=== PATIENT | male | born 1980 | race Caucasian/White ===

== ENCOUNTER 2021-01-31 18:50 | Emergency (ER) | payer OTHER ==
[~2021-01-31] VITALS: Ht 188 cm; Wt 113.4 kg
[~2021-01-31 18:50] MED LIST: ALVESCO6.1 G1 INH; LORATADINE10 MG PO; NASACORT10.8 ML NAS; PROAIR HFA8.5 GM INH; SUDAFED 12-HOU120 MG PO
[2021-01-31] MEDS ORDERED: CEPHALEXIN500 MG PO (20:45)
[2021-01-31] MEDS ORDERED: HYDROCODON-ACE1 EA10 PO (20:47)
== END 2021-01-31 21:05 | disposition home or self-care (01) ==
LOC: ED 18:50
DX: S91.331A Puncture wound without foreign body, right foot, initial encounter (principal); W22.8XXA Striking against or struck by other objects, initial encounter
CPT/HCPCS: 73630; 99283-25

== ENCOUNTER 2024-08-23 14:01 | Emergency (ER) | payer OTHER ==
[~2024-08-23] VITALS: Ht 188 cm; Wt 121.1 kg
[~2024-08-23 14:01] MED LIST changes: +CEPHALEXIN500 MG PO; +HYDROCODON-ACE1 EA10 PO
[2024-08-23 14:25] LABS: BILIRUBIN, URINE POSITIVE (negative); BLOOD/HGB, URINE NEGATIVE (Negative); KETONE, URINE SMALL (Negative); LEUK ESTERASE, URINE NEGATIVE (negative); NITRITE, URINE POSITIVE (negative)
[2024-08-23 14:29] LABS: EPITHELIAL CELLS, URINE SQUAMOUS 1+ /lpf (0-1+)
[2024-08-23] MEDS ORDERED: KETOROLAC TROMETHAMINE 15 MG/ML VIAL IV ONE (14:30)
[2024-08-23] MEDS ORDERED: ondansetron HCL 4 MG/2 ML VIAL IV PRN (14:30)
[2024-08-23 14:31] LABS: CRYSTALS, URINE AMORPHOUS URATES 2+ (0-1+); RED BLOOD CELLS, URINE 0-1 /hpf (0-5); WHITE BLOOD CELLS, URINE 0-1 /HPF (0-5)
[2024-08-23 14:32] LABS: BACTERIA, URINE RARE /hpf (negative); CASTS, URINE NONE SEEN \\lpf; COLLECTION TYPE, URINE CLEAN CATCH; REFLEX CULTURE, URINE No (No)
[2024-08-23 14:47] LABS: BASOPHILS 0.3 % (0-2); EOSINOPHILS 0.1 % (0-6); HEMATOCRIT 48.3 % (35.0-50.0); HEMOGLOBIN 17.1 g/dL (12.0-18.0); LYMPHOCYTES 8.8 % (24-44); MCH 30.9 (27-36); MCHC 35.5 g/dl (30-36); MCV 87.1 fl (81-99); MONOCYTES 3.9 % (0-12); NEUTROPHILS 86.9 % (39-80); PLATELET COUNT 153 K/uL (140-440); RBC 5.55 M/ul (4.3-5.7); RDW 13.5 (10.5-15.0)
[2024-08-23] MEDS ORDERED: KETOROLAC TROMETHAMINE 30 MG/ML VIAL IV ONE (15:00)
[2024-08-23] MEDS ORDERED: SODIUM CHLORIDE 0.9% 1,000 ML IV ONE ×2 (15:00→17:15)
[2024-08-23 15:01] LABS: ALBUMIN 3.9 g/dL (3.4-5.0); ALBUMIN/GLOBULIN RATIO 0.91 (1.1-2.4); ANION GAP 16.7 (7-21); BILIRUBIN, TOTAL 0.9 ng/dL (0.2-1.0); BUN/CREATININE RATIO 9.37 (6.0-28.6); CALCIUM 9.7 mg/dL (8.5-10.1); CREATININE, SERUM 1.28 mg/dL (0.70-1.30); POTASSIUM 3.7 mmol/L (3.5-5.1); PROTEIN, TOTAL 8.2 g/dL (6.4-8.2)
[2024-08-23] MEDS ORDERED: HYDROmorphone HCL 1 MG/ML SYR IV PRN (15:15)
[2024-08-23] MEDS ORDERED: ONDANSETRON ODT8 MG PO (17:15)
[2024-08-23] MEDS ORDERED: ondansetron HCL 4 MG/2 ML VIAL IV ONE (17:15)
[2024-08-23 18:42] VITALS: BP 114/76
[2024-08-23] MEDS ORDERED: ONDANSETRON 4 MG HOME.PACK SL ONE (18:45)
== END 2024-08-23 18:42 | disposition home or self-care (01) ==
LOC: ED 14:01
PROVIDERS: Emergency Medicine
DX: K52.9 Noninfective gastroenteritis and colitis, unspecified (principal); J45.909 Unspecified asthma, uncomplicated; Z90.49 Acquired absence of other specified parts of digestive tract; Z79.899 Other long term (current) drug therapy
CPT/HCPCS: 36415; 76705; 80053; 81001; 83690; 85025; 96361; 96374; 96375; 96376; 99284-25; A9270; J1171; J1885; J2405; J7030

== ENCOUNTER 2024-08-25 17:40 | Inpatient (IN) | payer OTHER ==
[~2024-08-25] VITALS: Ht 188 cm; Wt 119.7 kg
[~2024-08-25 17:40] MED LIST changes: +ONDANSETRON ODT8 MG PO
--- OUTSIDE RECORDS SUMMARY | 2024-08-25 17:47 | XMS ---
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 EElizabeth VISIT COUNT (12 MO.) 2 [facility] TOTAL 2 NOTE: Visits indicate total known visits. ED/UCC VISIT TRACKING (12 MO.) 08/25/2024 17:41 [facility] [place] TYPE: Emergency COMPLAINT: - VOMITING/CONSTIPATION 08/23/2024 14:01 [facility] [place] TYPE: Emergency COMPLAINT: - ABDOMINAL PAIN INPATIENT VISIT TRACKING (12 MO.) No inpatient visits to display in this time frame [id number]
[2024-08-25] MEDS ORDERED: ALLOPURINOL100 MG PO (17:56)
[2024-08-25] MEDS ORDERED: DULERA 100 MCG/13 GM INH (17:56)
[2024-08-25] MEDS ORDERED: ondansetron HCL 4 MG/2 ML VIAL IV ONE (18:15)
[2024-08-25] MEDS ORDERED: SODIUM CHLORIDE 0.9% 1,000 ML IV PRN (18:15)
[2024-08-25 18:33] LABS: BASOPHILS 0.3 % (0-2); EOSINOPHILS 0.1 % (0-6); HEMATOCRIT 50.8 % (35.0-50.0); HEMOGLOBIN 17.3 g/dL (12.0-18.0); LYMPHOCYTES 7.9 % (24-44); MCH 30.2 (27-36); MCHC 34.1 g/dl (30-36); MCV 88.7 fl (81-99); MONOCYTES 7.8 % (0-12); NEUTROPHILS 83.9 % (39-80); PLATELET COUNT 179 K/uL (140-440); RBC 5.73 M/ul (4.3-5.7); RDW 13.7 (10.5-15.0)
[2024-08-25 18:42] LABS: ALBUMIN 3.4 g/dL (3.4-5.0); ALBUMIN/GLOBULIN RATIO 0.77 (1.1-2.4); ANION GAP 13.5 (7-21); BILIRUBIN, TOTAL 1.3 ng/dL (0.2-1.0); BUN/CREATININE RATIO 13.15 (6.0-28.6); CALCIUM 9.7 mg/dL (8.5-10.1); CREATININE, SERUM 1.52 mg/dL (0.70-1.30); POTASSIUM 3.5 mmol/L (3.5-5.1); PROTEIN, TOTAL 7.8 g/dL (6.4-8.2)
[2024-08-25 18:45] LABS: BILIRUBIN, URINE POSITIVE (negative); BLOOD/HGB, URINE SMALL (Negative); KETONE, URINE SMALL (Negative); LEUK ESTERASE, URINE NEGATIVE (negative); NITRITE, URINE NEGATIVE (negative); PH, URINE 5.5 (5-7)
[2024-08-25 18:55] LABS: BACTERIA, URINE NONE SEEN /hpf (negative); CASTS, URINE NONE SEEN \\lpf; COLLECTION TYPE, URINE CLEAN CATCH; CRYSTALS, URINE AMORPHOUS URATES 1+ (0-1+); EPITHELIAL CELLS, URINE NONE SEEN /lpf (0-1+); RED BLOOD CELLS, URINE 0-1 /hpf (0-5); REFLEX CULTURE, URINE No (No); WHITE BLOOD CELLS, URINE 0-1 /HPF (0-5)
[2024-08-25] MEDS ORDERED: droPERidol 5 MG/2 ML VIAL IV ONE (19:15)
[2024-08-25] MEDS ORDERED: LACTATED RINGER'S 1,000 ML IV ONE (19:15)
[2024-08-25] MEDS ORDERED: HYDROmorphone HCL 1 MG/ML SYR IV PRN ×3 (19:15→22:15)
[2024-08-25] MEDS ORDERED: FAMOTIDINE 20 MG/ 2 ML VIAL IV ONE (19:30)
[2024-08-25 20:44] LABS: INR 1.04 (0.80-1.30); PROTIME 13.5 Sec (11.2-14.2)
[2024-08-25] MEDS ORDERED: ondansetron HCL 4 MG/2 ML VIAL IV PRN (20:45)
[2024-08-25] MEDS ORDERED: ENOXAPARIN SODIUM 40 MG/0.4 ML SYR SUB-Q ONE (20:45)
[2024-08-25] MEDS ORDERED: LACTATED RINGER'S 1,000 ML IV SCH (20:45)
[2024-08-25 20:46] LABS: PARTIAL THROMBOPLASTIN TIME 28.6 Sec (22.9-41.3)
[2024-08-25] MEDS ORDERED: FAMOTIDINE 20 MG/ 2 ML VIAL IV SCH (21:00)
[2024-08-25 21:48] VITALS: BP 147/87
[2024-08-25] MEDS ORDERED: PROCHLORPERAZINE EDISYLATE 10 MG/2 ML VIAL IV PRN (22:15)
--- NOTE | 2024-08-25 22:28 | NUR ---
PT TO FLOOR VIA STRETCHER WITH ED RN. ALERT AND ORIENTED. PT ABLE TO TRANSFER SELF TO BED. REPORT RECEIVED. VS AND WEIGHT OBTAINED. NGT TO LIWS. IVF INFUSING PER ORDER. PT REPORTS ABD PAIN 10/06. PRN FOR PAIN ADMIN PER EMAR. PT GAGGING ON NGT AND REQUESTING ICE CHIPS. CALLED. NEW TELEPHONE ORDERS RECEIVED VERIFIED WITH READBACK METHOD. PT DENIES NAUSEA AT THIS TIME. BOWEL TONES RARE. ABD SOFT. PT DENIES FLATUS, LAST BM SUNDAY. PT ORIENTED TO ROOM AND NURSE CALL LIGHT. PT DENIES QUESTIONS OR CONCERNS. CALL LIGHT IN REACH.
[2024-08-25] MEDS ORDERED: phenoL 177 ML SPRAY MT PRN (22:30)
[2024-08-26] VITALS (10 sets, daily range): BP systolic 132–145; BP diastolic 79–81
--- NOTE | 2024-08-26 00:33 | NUR ---
ROUNDING ON PT. PT AWAKE IN BED. REPORTS ABD PAIN 11/06. PRN FOR PAIN ADMIN PER EMAR. URINAL EMPTIED OF 400 ML CONCENTRATED URINE. NGT TO LIWS WITH SMALL AMOUNT CLEAR DRAINAGE. HOB 30 DEGREES. ICE CHIPS AT BEDSIDE. PT DENIES NAUSEA. NO FURTHER NEEDS.
--- NOTE | 2024-08-26 02:14 | NUR ---
PT RESTING WITH EYES CLOSED. AWAKENS EASILY. VS AND I&O OBTAINED. PT REMAINS NPO. ICE CHIPS AT BEDSIDE. NGT TO LIWS WITH SMALL AMOUNT CLEAR DRAINAGE. PT REPORTS ABD/BACK PAIN 11/06. PRN FOR PAIN ADMIN PER EMAR. NO C/O NAUSEA AT THIS TIME. IN ROOM TO STAY THE NIGHT, LINENS PROVIDED. NO FURTHER NEEDS. CALL LIGHT IN REACH.
--- NOTE | 2024-08-26 04:08 | NUR ---
PT UTILIZES CALL LIGHT, REQUESTS PRN PAIN MEDICATION. PT RATES PAIN 5/10 TO ABD AND BACK. PRN ADMINISTERED. SEE EMAR. ICE CHIPS PROVIDED PER REQUEST. PT'S PRESENT AT BEDSIDE. PT DENIES FURTHER NEEDS. CALL LIGHT IN REACH.
[2024-08-26 05:41] LABS: BASOPHILS 0.2 % (0-2); HEMATOCRIT 44.9 % (35.0-50.0); HEMOGLOBIN 15.4 g/dL (12.0-18.0); LYMPHOCYTES 9.5 % (24-44); MCH 30.5 (27-36); MCHC 34.4 g/dl (30-36); MCV 88.6 fl (81-99); MONOCYTES 11.7 % (0-12); NEUTROPHILS 78.6 % (39-80); PLATELET COUNT 151 K/uL (140-440); RBC 5.07 M/ul (4.3-5.7); RDW 13.6 (10.5-15.0)
[2024-08-26 05:59] LABS: ALBUMIN 2.9 g/dL (3.4-5.0); ALBUMIN/GLOBULIN RATIO 0.78 (1.1-2.4); ANION GAP 10.8 (7-21); BILIRUBIN, TOTAL 1.1 ng/dL (0.2-1.0); BUN/CREATININE RATIO 16.66 (6.0-28.6); CALCIUM 8.7 mg/dL (8.5-10.1); CREATININE, SERUM 1.08 mg/dL (0.70-1.30); POTASSIUM 3.8 mmol/L (3.5-5.1); PROTEIN, TOTAL 6.6 g/dL (6.4-8.2)
[2024-08-26] MEDS ORDERED: ACETAMINOPHEN 325 MG TAB PO PRN (06:30)
[2024-08-26] MEDS ORDERED: ACETAMINOPHEN 650 MG SUPP PR PRN (06:30)
[2024-08-26] MEDS ORDERED: DEXTROSE 5% - LACTATED RINGERS 1,000 ML IV SCH (06:30)
--- NOTE | 2024-08-26 06:32 | NUR ---
VS AND I&O OBTAINED. PT REPORTS ABD PAIN 11/06. PRN FOR PAIN ADMIN PER EMAR. SpO2 LOW 90'S ON RA WHILE AWAKE. CPOX PLACED. SpO2 DOWN TO 88%. 1L/NC PLACED. HOB ELEVATED >30 DEGREES. NO FURTHER NEEDS AT THIS TIME. CALL LIGHT IN REACH.
[2024-08-26] MEDS ORDERED: HEParin SOD (PORCINE) 5,000 UNIT/ML SYR IV ONE (06:45)
[2024-08-26] MEDS ORDERED: HEParin SOD (PORCINE) 5,000 UNIT/ML SYR IV PRN ×3 (06:45)
[2024-08-26] MEDS ORDERED: HEPARIN SOD,PORK IN 0.45% NACL 500 ML IV SCH (06:45)
[2024-08-26 07:01] LABS: INR 1.1 (0.80-1.30); PROTIME 14.1 Sec (11.2-14.2)
[2024-08-26 07:03] LABS: PARTIAL THROMBOPLASTIN TIME 30.9 Sec (22.9-41.3)
[2024-08-26] MEDS ORDERED: COLCRYS0.6 MG PO (07:41)
[2024-08-26] MEDS ORDERED: VENTOLIN HFA18 GM INH (07:42)
[2024-08-26] MEDS ORDERED: PRILOSEC OTC20 MG PO (07:58)
--- NOTE | 2024-08-26 07:59 | NUR ---
MED REC COMPLETE
--- NOTE | 2024-08-26 08:05 | CONS ---
[facility] [address], [place] [address] Signed DATE OF CONSULTATION: 08/26/2024 CHIEF COMPLAINT: Right lower quadrant abdominal pain. HISTORY OF PRESENT ILLNESS: Farhad is a 43-year-old gentleman, who underwent an open appendectomy for ruptured appendicitis when he was 4 years old. He said he was almost . They left a drain in him for two weeks. He also had surgery for nasal fracture. 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 He otherwise is quite healthy other than a little asthma and back pain. He came to our emergency room five days ago with various abdominal complaints of what he thought was constipation and some vomiting. His ultrasound of the right upper quadrant was unrevealing. He felt better after some IV fluids and some Zofran. He came back with ongoing vomiting and dehydration. Again, he felt better with some IV fluids and antiemetics. White count was a little up at 12.1, but so was his hemoglobin at 17, so was the BUN and creatinine and his urine specific gravity. CT scan of the abdomen and pelvis shows that he has a small bowel obstruction in the right lower quadrant associated with his previous open appendectomy. 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 He was given some Lovenox last night and admitted to my service as a local general surgeon. He has done very well overnight. PAST MEDICAL HISTORY: Asthma and back pain. PAST SURGICAL HISTORY: He has an open appendectomy at age 4 requiring a drain for two weeks, also nasal fracture repair. SOCIAL HISTORY: He does not smoke. He does use marijuana. He is to his , Rosio at [phone]. They have two children. He works as a wheat rancher. Dr. Dagoberto Rivero is his primary care provider. He prefers the [facility] pharmacy. FAMILY HISTORY: He tells me there are no major medical issues in the family. REVIEW OF SYSTEMS: He had 10 systems reviewed. He is mainly talking about his open appendectomy. ALLERGIES: None. Electronically Signed By: JAN CARDOZO MD 08/26/24 0805 PATIENT NAME: FARHAD KWONG CONSULTATION DATE OF : 76 REPORT #: [id number] PHYSICIAN: JAN CARDOZO MD PCP: NOEMI RIVERO MD REPORT IS CONFIDENTIAL AND NOT TO BE RELEASED WITHOUT AUTHORIZATION [facility] [address] [place] [id number] Signed MEDICATIONS: 1. Zofran. 2. Albuterol. 3. Dulera. 4. Allopurinol. PHYSICAL EXAMINATION: VITAL SIGNS: His blood pressure is 145/81, his heart rate is 90, respiratory rate 18, temperature is 98.2. He is 94% to 97%. He is 6 feet 2 inches tall, 119 kg with a body mass index of 34. GENERAL: Farhad is a 43-year-old gentleman, lying supine in his hospital bed. His is in the room. He is in no acute distress. He has no increased work of breathing or shortness of breath. LUNGS: Generally clear to auscultation bilaterally. HEART: Regular rate and rhythm without murmurs. ABDOMEN: Obese, soft, flat, but he does have some minimal tenderness in the right lower quadrant. LABORATORY DATA: His white blood cell count was 12.1, it is down to 9. His hemoglobin was 17, it is down to 15. His neutrophils are 78. His platelets are 151. BUN 20, creatinine 1.5. Urine specific gravity was greater than 1.030. INR is 1. Total bilirubin was 1.3, AST 20, ALT 22, alkaline phosphatase 82, albumin 3.4, lipase 24. RADIOGRAPHIC STUDIES: Ultrasound from five days ago was unremarkable. Chest x-ray shows his NG tube in the stomach, but the lungs are unremarkable. CT scan of the abdomen and pelvis shows the small bowel obstruction in the right lower quadrant, some thrombus in the superior mesenteric vein near the splenic vein. ASSESSMENT AND PLAN: Farhad is a 43-year-old gentleman, who presents with his small bowel obstruction associated with his appendectomy when he was 4 years old along with dehydration and some thrombus in the superior mesenteric vein. He has been admitted, hydrated, and NG tube placed. Overall, he feels better. He did receive some Lovenox last night. I have contacted my hospitalist service and we discussed this in detail and he really needs to be on a heparin drip. If his small bowel resolve with conservative measures, we can turn off the heparin drip to do his surgery and turn the drip back on. Otherwise, he would be on Eliquis. I have reviewed this with Frahad and his . They have expressed understanding and agreed with the above plan. Electronically Signed By: JAN CARDOZO MD 08/26/24 0805 PATIENT NAME: FARHAD KWONG CONSULTATION DATE OF : 76 REPORT #: [id number] PHYSICIAN: JAN CARDOZO MD PCP: NOEMI RIVERO MD REPORT IS CONFIDENTIAL AND NOT TO BE RELEASED WITHOUT AUTHORIZATION [facility] [address] [address] Signed Jan Cardozo MD ALB/MODL /[id number] cc: MD Jan Carter MD Copies: NOEMI RIVERO MD, ANDREW L MD ~ Electronically Signed By: JAN CARDOZO MD 08/26/24 0805 PATIENT NAME: FARHAD KWONG CONSULTATION DATE OF : 76 REPORT #: [id number] PHYSICIAN: JAN CARDOZO MD PCP: NOEMI RIVERO MD REPORT IS CONFIDENTIAL AND NOT TO BE RELEASED WITHOUT AUTHORIZATION
--- NOTE | 2024-08-26 08:45 | NUR ---
AM ASSESSMENT COMPLETE - NGT DRAINING CLEAR TO GREEN BILE, PT USING ICE CHIPS MORE LIBERALLY THAN INTENDED FOR COMFORT, EDUCATION PROVIDED. BT ABSENT IN LOWER QUADRANTS, NOT PASSING GAS. HEPARIN GTT AND BOLUS STARTED, EDUCATION PROVIDED TO FAMILY REGARDING THIS - SEE FLOWSHEET FOR DETAILS. PT DENIES SOB OR PAIN WITH INSPIRATION, LUNGS CLEAR. CPOX IN PLACE.
[2024-08-26] MEDS ORDERED: PANTOPRAZOLE SODIUM 40 MG/10 ML VIAL IV SCH (09:00)
--- NOTE | 2024-08-26 10:16 | NUR ---
NGT CLAMPED FOR PT TO AMBULATE IN HALLWAY. FATHER IN ROOM TO ASSIST IN MOVING IV POLE. STATES PAIN IS WELL CONTROLLED AT THIS TIME.
--- NOTE | 2024-08-26 10:31 | NUR ---
PT NOT AVAILABLE FOR VISIT. PROVIDED PRAYER.
--- NOTE | 2024-08-26 11:42 | NUR ---
RN IN ROOM ROUNDING ON PT - RESTING IN BED WITH NGT CONNECTED TO LIS, CONTINUES TO DRAIN GREEN THIN BILE. PT DENIES NEED FOR PAIN MEDICATION AT THIS TIME. CPOX AT BEDSIDE, 92% ON ROOM AIR. PT DENIES SOB WITH REST OR AMBULATION. URINE NOTED TO BE CONCENTRATED/ORANGE IN COLOR. FATHER AT BEDSIDE.
--- NOTE | 2024-08-26 12:11 | NUR ---
PT SALINE LOCKED AND NGT CLAMPED TO GO TO CT.
[2024-08-26] MEDS ORDERED: MENTHOL/CETYLPYRD CL 1 LOZ LOZENGE PO PRN (12:15)
--- NOTE | 2024-08-26 12:30 | NUR ---
PT BACK FROM CT - PT REQUESTS PAIN MEDICATION AND LOZENGE. PT EDUCATED ON USE OF ICE CHIPS HE HAS BEEN REFILLING HIS CUP WITHOUT STAFF PERMISSION FROM ICE MACHINE. FAMILY ARE ASSISTING IN THIS. PT ASKED NOT TO CONTINUE AND EDUCATED ON PURPOSE OF GUT REST AND NGT. CPOX IN PLACE, IVF AND HEPARIN GTT INFUSING.
--- NOTE | 2024-08-26 13:23 | NUR ---
UR CLINICAL REVIEW: [facility] IN[facility] CRITERIA FOR [facility] INPT 08/26/24 @ 0625 ORDER MATCHES REG CLINICALS FAXED TO [facility] FOR AUTH REVIEW DISCHARGE TO HOME WHEN STABLE 08/29/24
--- NOTE | 2024-08-26 14:04 | NUR ---
PATIENT IN BED AT THIS TIME. INVENTORY CONTROL SUPERVISOR CHARTED VITALS AND I&O'S. CALL LIGHT WITHIN REACH, NO FURTHER NEEDS AT THIS TIME.
--- NOTE | 2024-08-26 14:20 | NUR ---
In and spoke with Farhad and his dad, Jayme. Pt resting in bed with NG in place. Pt states he lives in a house with his and kids. He plans on returning home when he is medically cleared. or dad will stay with him if needed when he is discharged. Pt does not use and DME. He works and drives. He denies financial issues. Home when cleared.
--- NOTE | 2024-08-26 15:42 | NUR ---
RN IN ROOM TO PAUSE HEPARIN GTT PER PROTOCOL. LOZENGE PROVIDED PER REQUEST. AT BEDSIDE AND PT RESTING IN BED COMFORTABLY. CPOX IN PLACE. PT REQUESTS OXYGEN "TO HELP MY HEADACHE".
--- NOTE | 2024-08-26 16:44 | NUR ---
PT AMBULATING IN HALLWAY WITH FAMILY.
--- NOTE | 2024-08-26 17:50 | NUR ---
PATIENT IN BED AT THIS TIME. CAMERA SUPERVISOR CHARTED VITALS AND I&O'S. CALL LIGHT WITHIN REACH, NO FURTHER NEEDS AT THIS TIME.
--- NOTE | 2024-08-26 19:38 | NUR ---
REPORT RECEIVED FROM DAY SHIFT RN. PT LYING IN BED ALERT AND ORIENTED. DENIES NEEDS. WHITE BOARD UPDATED. CALL LIGHT IN REACH.
[2024-08-26] MEDS ORDERED: IBLOOD GLUCOSE TEST STRIP 1 EA TEST VI SCH (20:00)
--- NOTE | 2024-08-26 20:42 | NUR ---
EVENING ASSESSMENT COMPLET. PT REPORTS CHRONIC BACK PAIN 11/06. PRN FOR PAIN ADMIN PER EMAR. NGT TO LIWS WITH SMALL AMOUNT CLEAR DRAINAGE. BOWEL TONES RARE/ABSENT. ABD SOFT. PT DENIES FLATUS. HEPARIN DRIP INFUSING PER ORDER. AT BEDSIDE. PT DENIES QUESTIONS OR CONCERNS. CALL LIGHT IN REACH.
[2024-08-26] MEDS ORDERED: PATIENT'S OWN MEDICATION(S) ORDER MISC ONE (21:45)
--- NOTE | 2024-08-26 21:47 | NUR ---
PATIENT REQUESTING TO USE OWN INHALER, PHONE CALL TO MD, TELEPHONE ORDER FOR HOME INHALER BID, ORDER REPEATED BACK TO VERIFY.
[2024-08-26] MEDS ORDERED: [UNRECOGNIZED DRUG - OTHER] MISC SCH (22:00)
[2024-08-26] MEDS ORDERED: FORMOTEROL FUMARATE MISC SCH (22:00)
[2024-08-26] MEDS ORDERED: MOMETASONE MISC SCH (22:00)
--- NOTE | 2024-08-26 22:53 | NUR ---
LAB IN FOR PTT DRAW. PT HOME INHALER ADMIN. NO FURTHER NEEDS AT THIS TIME. CALL LIGHT IN REACH.
[2024-08-27] VITALS (11 sets, daily range): BP systolic 131–141; BP diastolic 81–93
--- NOTE | 2024-08-27 00:11 | NUR ---
PTT RESULTS RECEIVED AT 2317. HEPARIN DRIP PAUSED FOR THIRTY MINUTES. PT UP TO SHOWER INDEPENDENTLY. LINENS CHANGED. BACK TO BED, LOLIS WELL. PRN FOR N/V AND PAIN ADMIN PER EMAR. NGT TO LIWS. HOB ELEVATED. 2L/NC AND CPOX PLACED. HEPARIN DRIP TITRATED TO 13 UNITS/KG/HR AND STARTED AT 2348. RATE VERIFIED WITH CLAIM CLINICIAN. PT DENIES FURTHER NEEDS. CALL LIGHT IN REACH.
--- NOTE | 2024-08-27 02:39 | NUR ---
PHONE CALL TO ERNESTO FROM TELEPHARMACY. DISCUSSED HEPARIN GTT STARTED WITH ACTUAL WEIGHT VS DOSING WEIGHT. PHARMACIST RECOMMENDS CONTINUING WITH RATE BASED ON ACTUAL WEIGHT AT THIS TIME.
--- NOTE | 2024-08-27 02:45 | NUR ---
CALL LIGHT ANSWERED. PT REPORTS INTERMITTENT SHARP ABD PAIN 01/06. PRN FOR PAIN ADMIN PER EMAR. ABD ASSESSMENT COMPLETE. BOWEL TONES HYPOACTIVE. ABD SOFT. NGT TO LIWS WITH CLEAR DRAINAGE. FEW ICE CHIPS PROVIDED PER REQUEST FOR THROAT DISCOMFORT. NO FURTHER NEEDS. CALL LIGHT IN REACH.
--- NOTE | 2024-08-27 04:14 | NUR ---
CALL LIGHT ANSWERED. PT REPORTS DULL ABD PAIN 5/10. PRN FOR PAIN ADMIN PER EMAR.
--- NOTE | 2024-08-27 05:32 | NUR ---
CALL LIGHT ANSWERED. PT REPORTS BACK PAIN 11/06. PRN FOR PAIN ADMIN PER EMAR. NO FURTHER NEEDS.
[2024-08-27 05:57] LABS: BASOPHILS 0.2 % (0-2); EOSINOPHILS 0.3 % (0-6); HEMOGLOBIN 13.8 g/dL (12.0-18.0); LYMPHOCYTES 13.6 % (24-44); MCH 30.1 (27-36); MCHC 33.8 g/dl (30-36); MCV 89.2 fl (81-99); MONOCYTES 10.8 % (0-12); NEUTROPHILS 75.1 % (39-80); PLATELET COUNT 138 K/uL (140-440); RDW 13.6 (10.5-15.0)
[2024-08-27 06:14] LABS: ANION GAP 9.5 (7-21); BUN/CREATININE RATIO 13.4 (6.0-28.6); CALCIUM 8.6 mg/dL (8.5-10.1); CREATININE, SERUM 0.97 mg/dL (0.70-1.30); MAGNESIUM 1.9 mg/dL (1.8-2.4); PHOSPHORUS, INORGANIC 2.6 mg/dL (2.5-4.9); POTASSIUM 3.5 mmol/L (3.5-5.1)
[2024-08-27] MEDS ORDERED: SODIUM PHOSPHATE 20 MMOL in DEXTROSE 5% 250 ML IV ONE (07:00)
--- NOTE | 2024-08-27 07:02 | NUR ---
REPORT RECEIVED FROM APPLICATION SOFTWARE ENGINEER RN KVNG. PATIENT IS LYING IN BED WITH NG TUBE AND NC IN PLACE. PATIENT IS REQUESTING PAIN MEDICATION. PATIENT EDUCATED ON RN RECEIVING REPORT BY KVNG. PATIENT EXPRESSED UNDERSTANDING. PATIENT STATED NO FURTHER NEEDS AT THIS TIME. CALL LIGHT AND PERSONAL BELONGINGS ARE WITHIN REACH.
--- NOTE | 2024-08-27 07:50 | NUR ---
0800 AND 0900 MEDICATIONS ADMINISTERED PER THE EMAR. FULL ASSESSMENT COMPLETE AND DOCUMENTED IN THE CHART. PATIENT IS ALERT AND ORIENTED TIMES FOUR. FLAT AFFECT NOTED. CARDIAC WITH NORMAL S1 AND S2 ON AUSCULTATION. RADIAL AND PEDAL PULSES ARE STRONG BILATERALLY. CAPILLARY REFILL IN THE UPPER AND LOWER EXTREMITIES IS LESS THAN 3 SECONDS BILATERALLY. SENSATION INTACT WITH NO COMPLAINTS OF NUMBNESS OR TINGLING. PATIENT IS ON 2 L NC WITH THE CPOX AT BEDSIDE. LUNG SOUNDS ARE CLEAR IN ALL LUNG CHIU BILATERALLY. PATIENT IS NPO WITH THE NG TUBE IN PLACE. BOWEL TONES ARE ACTIVE IN ALL FOUR QUADRANTS. NG TUBE WITH ALBA DRAINAGE THAT IS WATERED DOWN. ICE CHIPS AT BEDSIDE FOR COMFORT. IV SITE FLUSHED WITH 10 ML NORMAL SALINE. IV DRESSING IS CLEAN, DRY, AND INTACT. IV HEPARIN INFUSION AND D5LR IS INFUSING AT 90 ML/HR DUE TO NURSE NOTIFY TO MAINTAIN TOTAL IV FLUID INTAKE TO 125 ML/HR AND UNDER. PATIENT RATED PAIN A 4/10 IN THE LOW BACK AND ABDOMEN. PRN DILAUDID ADMINISTERED PER THE EMAR. URINAL AT THE BEDSIDE. PATIENT STATED NO FURTHER NEEDS AT THIS TIME. CALL LIGHT AND PERSONAL BELONGINGS ARE WITHIN REACH.
--- NOTE | 2024-08-27 08:07 | NUR ---
Q6 blood sugar checked. RETA Sands already in room.
--- NOTE | 2024-08-27 08:45 | NUR ---
NEW OF FLUID STARTED AT THIS TIME. PATIENT STATES PAIN IS A 3/10 IN THE ABDOMEN AND LOW BACK AFTER RECEIVING PAIN MEDICATION THIS MORNING. PATIENT WITH VISITOR AT BEDSIDE AND TALKING WITH THE PATIENT. PATIENT STATED NO FURTHER NEEDS AT THIS TIME. CALL LIGHT AND PERSONAL BELONGINGS ARE WITHIN REACH.
--- NOTE | 2024-08-27 09:34 | NUR ---
Urinal emptied. Visitor in room.
--- NOTE | 2024-08-27 09:43 | NUR ---
PATIENT IS LYING IN BED WITH EYES OPEN AND RESPIRATIONS ARE EVEN AND UNLABORED. NEW IV STARTED IN THE RIGHT HAND, 20 GAUGE. SODIUM PHOSPHATE IS INFUSING IN THE IV SITE AT THIS TIME. PATIENT STATED NO FURTHER NEEDS AT THIS TIME. CALL LIGHT AND PERSONAL BELONGINGS ARE WITHIN REACH.
--- NOTE | 2024-08-27 10:27 | NUR ---
PATIENT IS LYING IN BED WITH EYES CLOSED AND RESPIRATIONS ARE EVEN AND UNLABORED. CPOX AT THE BEDSIDE. CALL LIGHT AND PERSONAL BELONGINGS ARE WITHIN REACH.
--- NOTE | 2024-08-27 11:07 | NUR ---
PATIENT IS LYING IN BED AND OPEN EYES UPON RN OPENING THE DOOR. PATIENT STATED NO FURTHER NEEDS AT THIS TIME. CALL LIGHT AND PERSONAL BELONGINGS ARE WITHIN REACH. NG TUB IN PLACE.
--- NOTE | 2024-08-27 12:11 | NUR ---
PT RESTING IN BED, NG IN PLACE TO LIS. IV FLUIDS INFUSING, PAUSED IV SO LAB COULD COMPLETE LAB DRAW. PRESENT IN THE COUCH AT THIS TIME. URINAL EMPTIED WITH 225ML YELLOW URINE, APPEARS TO HAVE A TINGE OF ORANGE/RED, PRIMARY RN NOTIFIED. PT DENIES ANY FURTHER NEEDS AT THIS TIME. CALL LIGHT WITHIN REACH.
--- NOTE | 2024-08-27 12:22 | NUR ---
PATIENT IS LYING IN BED WITH HOB ELEVATED. PATIENT WITH EYES OPEN AND RESPIRATIONS ARE EVEN AND UNLABORED. PATIENT WITH A VISITOR LYING ON THE COUCH. PATIENT STATED NO NEEDS AT THIS TIME. CALL LIGHT AND PERSONAL BELONGINGS ARE WITHIN REACH.
--- NOTE | 2024-08-27 13:43 | NUR ---
PATIENT IS LYING IN BED WITH HOB ELEVATED. PATIENT IS LYING ON THE COUCH AND ASKING QUESTIONS. QUESTIONS ANDSWERE BY THIS RN. PATIENT RATED PAIN 1/10 IN THE ABDOMEN AND IS NOT REQUESTING ANYTHING FOR PAIN AT THIS TIME. IV SITES BOTH FLUSHED WITH 10 ML NORMAL SALINE. IV DRESSINGS ARE CLEAN, DRY, AND INTACT. NG TUBE IN PLACE AND DRAINING DARK GREEN CONTENTS THAT ARE IN THE SUCTION CANISTER. PATIENT REMAINS NPO AND BOWEL TONES ARE ACTIVE IN ALL FOUR QUADRANTS. PATIENT STATED NO FURTHER NEEDS AT THIS TIME. CAROL LAWTON ARRIVED IN THE ROOM AT THIS TIME. CALL LIGHT AND PERSONAL BELONGINGS ARE WITHIN REACH.
--- NOTE | 2024-08-27 14:50 | NUR ---
PATIENT IS LYING IN BED WITH HOB ELEVATED. PATIENT RATED PAIN 4/10 AND A "TIGHT" FEELING. PATIENT IS NOT REQUESTING ANYTHING FOR PAIN AT THIS TIME. SEVERAL VISITORS ARE SITTING ON THE COUCH AT THIS TIME. CALL LIGHT AND PERSONAL BELONGINGS ARE WITHIN REACH.
--- NOTE | 2024-08-27 15:20 | NUR ---
Pt resting in bed with multiple family members in room. He denies needs.
--- NOTE | 2024-08-27 16:27 | NUR ---
PATIENT IS WALKING INDEPENDENTLY IN THE HALLWAY. PATIENT IS TOLERATING WELL.
--- NOTE | 2024-08-27 18:05 | NUR ---
PRN ZOFRAN AND DILAUDID ADMINISTERED PER THE EMAR. PAIN RATED 7/10 IN THE ABDOMEN PER THE PATIENT. PAIENT EDUCATED ON HOW NARCOTICS CAN MAKE YOU MORE NAUSEOUS. PATIENT STATED "LET'S GIVE IT A TRY AND SEE WHAT HAPPENS". IV SITE FLUSHED WITH 10 ML NORMAL SALINE AND IS SALINE LOCKED AFTER MEDICATION HAS BEEN ADMINISTERED. PATIENT IS SITTING IN THE CHAIR AT BEDSIDE. CPOX AT BEDSIDE. PATIENT CURTAIN DRAWN PER REQUEST. PATIENT STATED NO FURTHER NEEDS AT THIS TIME. CALL LIGHT AND PERSONAL BELONGINGS ARE WITHIN REACH.
--- NOTE | 2024-08-27 19:30 | NUR ---
REPORT RECIEVED FROM DAY SHIFT RN. PATIENT RESTING IN BED. HEPARIN DRIP DOUBLE VERIFIED AT 13 UNITS/KG/HR. NO FURTHER NEEDS. IN ROOM. CALL LIGHT IN REACH.
[2024-08-27] MEDS ORDERED: BUDESONIDE 0.5 MG/2 ML VIAL INH SCH (20:17)
[2024-08-27] MEDS ORDERED: ALBUTEROL SULFATE 0.083% 3 ML VIAL INH PRN (20:30)
--- NOTE | 2024-08-27 20:50 | NUR ---
PATIENT RESTING IN BED. NEW BACK IV FLUID INFUSING PER ORDER. SCHEDULED BS OBTAINED AND RECORDED. VS AND I&Os OBTAINED AND RECORDED. PATIENT AGREEABLE TO WALK SHEEHAN. PATIENT WALKED 2 LAPS AROUND [place] INDEPENDENTLY. PATIENT BACK TO BED. BOWEL TONES HYPOACTIVE. NG TUBE SET TO LIWS. PATIENT REPORTS 5/10 ABD PAIN. PRN PAIN MEDICATION ADMINISTERED. NO FURTHER NEEDS. CALL LIGHT IN REACH.
--- NOTE | 2024-08-27 23:33 | NUR ---
CALL LIGHT ANSWERED. PT WANTED TO SHOWER. RECREATIONAL THERAPY AIDE AND RN PREPPED PT FOR SHOWER. PT ABLE TO SHOWER INDEPENDENTLY. RECREATIONAL THERAPY AIDE AND RN CHANGED PT BED LINENS. PT INSTRUCTED TO CALL WHEN DONE WITH SHOWER. CALL LIGHT ANSWERED. PT BACK IN BED. NG TUBE RECONNECTED TO INTERMEDIATE SUCTION. CPOX RECONNECTED AND RN NOTFIED TO RECONNECT IV. PT STATES NO FURTHER NEEDS AT THIS TIME. CALL LIGHT WITHIN REACH.
[2024-08-28] VITALS (9 sets, daily range): BP systolic 133–137; BP diastolic 77–81
--- NOTE | 2024-08-28 01:37 | NUR ---
PATIENT RESTING IN BED ON BACK WITH EYES CLOSED. RESPIRATIONS EVEN AND UNLABORED. CALL LIGHT IN REACH.
--- NOTE | 2024-08-28 02:14 | NUR ---
CALL LIGHT ANSWERED. PATIENT REQUESTING PAIN MEDICATION. PRN PAIN MEDICATION ADMINISTERED. BS OBTAINED AND RECORDED. FRESH ICE CHIPS PROVIDED. PATIENT HAS NO FURTHER NEEDS. CALL LIGHT IN REACH.
--- NOTE | 2024-08-28 03:16 | NUR ---
PATIENT RESTING IN BED ON BACK WITH EYES CLOSED. RESPIRATIONS EVEN AND UNLABORED. NG TUBE SET TO LIWS. CALL LIGHT IN REACH.
--- NOTE | 2024-08-28 04:09 | NUR ---
CALL LIGHT ANSWERED. PATIENT REQUESTING PAIN MEDICATION. PRN PAIN MEDICATION ADMINISTERED PER PATIENT REQUEST. VS AND I&Os OBTAINED AND RECORDED. NG TUBE CANISTER EMPTIED. PATIENT NG TUBE SET TO LIWS. PATIENT DENIES FURTHER NEEDS AT THIS TIME. CALL LIGHT IN REACH.
[2024-08-28 05:37] LABS: BASOPHILS 0.2 % (0-2); EOSINOPHILS 0.4 % (0-6); HEMATOCRIT 39.7 % (35.0-50.0); HEMOGLOBIN 13.8 g/dL (12.0-18.0); LYMPHOCYTES 12.4 % (24-44); MCH 30.6 (27-36); MCHC 34.8 g/dl (30-36); MCV 87.8 fl (81-99); MONOCYTES 9.1 % (0-12); NEUTROPHILS 77.9 % (39-80); PLATELET COUNT 143 K/uL (140-440); RBC 4.52 M/ul (4.3-5.7); RDW 13.6 (10.5-15.0)
[2024-08-28 05:44] LABS: ANION GAP 10.4 (7-21); CALCIUM 8.6 mg/dL (8.5-10.1); MAGNESIUM 1.9 mg/dL (1.8-2.4); PHOSPHORUS, INORGANIC 2.8 mg/dL (2.5-4.9); POTASSIUM 3.4 mmol/L (3.5-5.1)
--- NOTE | 2024-08-28 06:34 | NUR ---
CALL LIGHT ANSWERED. PATIENT REQUESTING PAIN MEDICATION. PRN PAIN MEDICATION ADMINISTERED. BOWEL TONES VERY HYPOACTIVE. PATIENT HAS NO FURTHER NEEDS. CALL LIGHT IN REACH.
[2024-08-28] MEDS ORDERED: MAGNESIUM SULFATE 2 GM/50 ML BAG IV ONE (06:45)
[2024-08-28] MEDS ORDERED: POTASSIUM PHOSPHATE 30 MMOL in DEXTROSE 5% 500 ML IV ONE (06:45)
--- NOTE | 2024-08-28 06:59 | NUR ---
SCHEDULED MEDICATION ADMINISTERED. PATIENT REQUESTING NAUSEA MEDICATION. NEW BAG IV FLUID INFUSING PER ORDER. NO FURTHER NEEDS. CALL LIGHT IN REACH.
--- NOTE | 2024-08-28 07:15 | NUR ---
REPORT RECEIVED FROM UPPER CUTTER OUT RN SATINDER. HEPARIN DRIP VERAFIED WITH RETA RAJAN. PATIENT IS LYING IN BED WITH EYES CLOSED AND RESPIRATIONS ARE EVEN AND UNLABORED. CALL LIGHT AND PERSONAL BELONGINGS ARE WITHIN REACH.
[2024-08-28] MEDS ORDERED: ALBUTEROL/IPRATROPIUM 3 ML NEB INH SCH (08:00)
[2024-08-28] MEDS ORDERED: BUDESONIDE 0.5 MG/2 ML VIAL INH SCH (08:00)
--- NOTE | 2024-08-28 08:19 | NUR ---
Q6 blood sugar checked. IV pump alarm was going off, RETA Sands notified. Patient urinal emptied and rinsed.
[2024-08-28] MEDS ORDERED: CEFTRIAXONE/SODIUM CHLORIDE 2 GM/100 ML PIGGYBACK IV SCH (09:00)
[2024-08-28] MEDS ORDERED: metroNIDAZOLE/SODIUM CHLORIDE 500 MG/100 ML PIGGYBACK IV SCH (09:00)
--- NOTE | 2024-08-28 09:30 | NUR ---
FULL ASSESSMENT COMPLETE AND DOCUMENTED IN THE CHART. PATIENT IS ALERT AND ORIENTED TIMES FOUR WITH A FLAT AFFECT. CARDIAC WITH NORMAL S1 AND S2 ON AUSCULTATION. RADIAL AND PEDAL PULSES ARE STRONG BILATERALLY. CAPILLARY REFILL IN THE UPPER AND LOWER EXTREMITIES IS LESS THAN 3 SECONDS BILATERALLY. SENSATION INTACT WITH NO COMPLAINTS OF NUMBNESS OR TINGLING. PATIENT IS NPO AT THIS TIME WITH ICE CHIPS FOR COMFORT. NG TUBE IS CLAMPED AT THIS TIME FOR A SMALL BOWEL FOLLOW THROUGH. BOWEL TONES ARE HYPOACTIVE IN ALL FOUR QUADRANTS. PATIENT IS ON 2 L NC WITH THE CPOX AT BEDSIDE. LUNG SOUNDS ARE CLEAR IN ALL LUNG CHIU BILATERALLY. PATIENT WITH D5LR INFUSING AT REDUCED RATED TO MAINTAIN TOTAL IV FLUID INTAKE TO 100 ML/HR. IV SITES BOTH FLUSHED WITH 10 ML NORMAL SALINE. IV DRESSINGS ARE CLEAN, DRY, AND INTACT. PATIENT RATED PAIN 5/10 IN THE ABDOMEN. PATIENT IS NOT REQUESTING ANYTHING FOR PAIN AT THIS TIME. PATIENT PROVIDED ICE CHIPS. PATIENT STATED NO FURTHER NEEDS AT THIS TIME. CALL LIGHT AND PERSONAL BELONGINGS ARE WITHIN REACH.
--- NOTE | 2024-08-28 10:23 | NUR ---
PATIENT IS LYING IN BED WITH EYES OPEN AND RESPIRATIONS ARE EVEN AND UNLABORED. NEW BAG OF HEPARIN STARTED AT THIS TIME BY RETA REARDON. PATIENT PROVIDED BLANKET BY CAROL LAWTON. PATIENT STATED NO FURTHER NEEDS AT THIS TIME. CALL LIGHT AND PERSONAL BELONGINGS ARE WITHIN REACH.
--- NOTE | 2024-08-28 10:42 | NUR ---
Patient's IV alarm was going off, RETA Sands notified.
--- NOTE | 2024-08-28 10:42 | NUR ---
VISITED DURING SPIRITUAL CARE ROUNDS. PT APPEARED TO BE SLEEPING. DID NOT DISTURB. PROVIDED PRAYER.
--- NOTE | 2024-08-28 11:07 | NUR ---
PT COMPLAINING OF BURNING AT POTASSIUM INFUSION SITE. POTASSIUM INFUSION SLOWED TO 70ML/HR AND ICE PACK PROVIDED. PT EDUCATED TO CALL IF BURNING CONTINUES OR INCREASES, PT VERBALIZES UNDERSTANDING. NO OTHER REQUETS, CALL LIGHT IN REACH.
--- NOTE | 2024-08-28 11:36 | NUR ---
PATIENT IS AMBULATING IN THE HALLWAY WITH CAROL WESLEY. PATIENT TOLERATING WELL.
--- NOTE | 2024-08-28 12:21 | NUR ---
PATIENT IS AMBULATING IN THE HALLWAY AT THIS TIME. PATIENT TOLERATING WELL. PATIENT EXPRESSED NO DISCOMFORT REGARDING THHE POTASSIUM PHOSPHATE INFUSING. PATIENT RATED PAIN 6/10 IN THE ABDOMEN AND "FEELING FULL". RN TO BRING IN A DOSE OF DILAUDID WHEN PATIENT RETURNS TO THE ROOM. PATIENT STATED NO FURTHER NEEDS AT THIS TIME.
--- NOTE | 2024-08-28 13:48 | NUR ---
Q6 blood sugar checked and RETA Sands notified. Patient's in room.
--- NOTE | 2024-08-28 14:54 | NUR ---
RN ENTERED THE ROOM TO PATIENT SITTING UPRIGHT IN THE CHAIR AND HIS SITTING ON THE COUCH. IV SITES ARE CLEAN, DRY, AND INTACT. PATIENT RATED PAIN A 6/10 IN THE ABDOMEN. PATIENT STATED HAVING NAUSEA WELL. PATIENT STATED "FEELING FULL". PATIENT IS REQUESTING PAIN MEDICATION AND NAUSEA MEDICATION WHEN THEY BECOME AVAILABLE. PATIENT NG TUBE REMAINS DISCONNECTED FROM THE SUCTION. BOWEL TONES ARE HYPOACTIVE IN ALL FOUR QUADRANTS. PATIENT ABDOMEN WITH MILD DISTENTION. PATIENT THEN TRANSFERRED BACK TO THE BED INDEPENDENTLY. PATIENT STATED NO FURTHER NEEDS AT THIS TIME. CALL LIGHT AND PERSONAL BELONGINGS ARE WITHIN REACH.
--- NOTE | 2024-08-28 15:41 | NUR ---
PRN DILAUDID AND COMPAZINE ADMINISTERED PER THE EMAR. PATIENT AND FAMILY HAD QUESTIONS REGARDING SURGERY. RN EDUCATED PATIENT AND FAMILY THAT WE WILL HAVE MORE OF A PLAN AND ANSWER AFTER THE SMALL BOWEL FOLLOW THROUGH. PATIENT AND FAMILY EXPRESSED UNDERSTANDING. PATIENT STATED NO FURTHER NEEDS AT THIS TIME. CPOX AT BEDSIDE. CALL LIGHT AND PERSONAL BELONGINGS ARE WITHIN REACH.
--- NOTE | 2024-08-28 16:00 | NUR ---
Spoke with pt and . They plan for laparoscopy tomorrow. is concerned Dr. Priest is not here tomorrow. I let her know I have not heard this and I will text him. She would like him to do the surgery. Pt denies needs. He feels his abd is more distended. I will contact Dr. Priest.
--- NOTE | 2024-08-28 16:11 | NUR ---
PATIENT RECONNECTED TO INTERMITTENT SUCTION. NG TUBE WITH 900 IN THE CANISTER WHILE RN IN THE ROOM. CANISTER EMPTIED OF DARK GREEN/BROWN DRAINAGE. ON THE PHONE AT THIS TIME. RN GAVE UPDATE. MD INSTRUCTED TO LET HIM KNOW WHEN THE SMALL BOWEL FOLLOW THROUGH RESULTS COME THROUGH. RN EXPRESSED UNDERSTANDING. CALL ENDED WITH NO NEW ORDERS.
--- NOTE | 2024-08-28 16:53 | NUR ---
Updated pts , Dr Priest plans on operating on Farhad tomorrow.
--- NOTE | 2024-08-28 16:57 | NUR ---
NOTIFIED OF THE SMALL BOWEL FOLLOW THROUGH RESULTS. STATED TO RN TO HOLD HEPARIN STARTING AT MIDNIGHT. NO FURTHER ORDERS AT THIS TIME. CALL ENDED.
--- NOTE | 2024-08-28 17:06 | NUR ---
VITAL SIGNS TAKEN AND DOCUMENTED IN THE CHART. PATIENT AND HIS UPDATED REGARDING CONVERSATION WITH AND THE RESULTS OF THE SMALL BOWEL FOLLOW THROUGH. PATIENT AND FAMILY WITH NO FURTHER QUESTIONS OR CONCERNS. PATIENT STATED NO FURTHER NEEDS AT THIS TIME. CALL LIGHT AND PERSONAL BELONGINGS ARE WITHIN REACH.
--- NOTE | 2024-08-28 17:30 | NUR ---
Patient called asking to walk the hallways. RETA Sadns notified to clamp NG tube. Patient ambulated independently.
--- NOTE | 2024-08-28 17:31 | NUR ---
PATIENT IS AMBULATING IN THE HALLWAY AT THIS TIME. PATIENT COMPLETING WALK INDEPENDENTLY WITH FAMILY MEMBER.
--- NOTE | 2024-08-28 18:07 | NUR ---
MAINTENANCE FLUIDS AND POTASSIUM PHOSPHATE INFUSION ON THE IV IN THE RIGHT HAND. HEPARIN INFUSION IN THE LEFT HAND. PATIENT RECONNECTED TO THE INTERMITTENT SUCTION FOR THE NG TUBE. NG TUBE OUTPUT IS DARK GREEN AT THIS TIME. PATIENT IS SITTING IN THE CHAIR AT BEDSIDE. PATIENT AND FAMILY STATED NO FURTHER NEEDS AT THIS TIME. CALL LIGHT AND PERSONAL BELONGINGS ARE WITHIN REACH.
--- NOTE | 2024-08-28 19:25 | NUR ---
REPORT RECIEVED FROM DAY SHIFT RN. PATIENT RESTING IN BED WITH FATHER IN ROOM. NO CURRENT NEEDS. CALL LIGHT IN REACH.
[2024-08-28] MEDS ORDERED: MOMETASONE/FORMOTEROL 8.8 GM HFA.AER.AD INH SCH (20:00)
--- NOTE | 2024-08-28 20:24 | NUR ---
HOP WORKER OBTAINED VITALS AND I&O. NG TUBE CANNISTER EMPTIED. HOP WORKER GOT PT UP TO WALK THE SHEEHAN AND WILL USE CALL LIGHT WHEN BACK IN BED.
--- NOTE | 2024-08-28 20:31 | NUR ---
PT DONE WITH WALK. NG TUBE RECONNECTED TO SUCTION AND CPOX RECONNECTED. PT STATES NO FURTHER NEEDS AT THIS TIME. CALL LIGHT WITHIN REACH.
--- NOTE | 2024-08-28 22:50 | NUR ---
SHOWER PERFORMED INDEPENDENTLY, PATIENT NOW RESTING IN BED. PATIENT NG TUBE SET TO LIWS. IV FLUID INFUSING PER ORDER AND HEPARIN DRIP INFUSING AT 13 UNITS/KG/HR. CPOX IN PLACE. PRN PAIN AND NAUSEA MEDICATION ADMINISTERED PER PATIENT REQUEST. PATIENT HAS NO FURTHER NEEDS. CALL LIGHT IN REACH.
[2024-08-29] VITALS (10 sets, daily range): BP systolic 120–143; BP diastolic 68–81
--- NOTE | 2024-08-29 00:15 | NUR ---
PATIENT RESTING IN BED. PRN PAIN MEDICATION ADMINISTERED PER PATIENT REQUEST. HEPARIN DRIP INFUSION STOPPED AT THIS TIME PER MD ORDER. PATIENT ICE CHIPS REMOVED FROM BEDSIDE TABLE. PATIENT NPO AT THIS TIME. NO FURTHER NEEDS. CALL LIGHT IN REACH.
--- NOTE | 2024-08-29 02:13 | NUR ---
ROUNDING ON PATIENT. PATIENT STATES "I THINK MY PAIN MEDS MIGHT BE STARTING TO WEAR OFF". PRN PAIN MEDICATION ADMINISTERED PER PATIENT REQUEST. NO FURTHER NEEDS AT THIS TIME. CALL LIGHT IN REACH.
--- NOTE | 2024-08-29 05:10 | NUR ---
NEW BAG IVF HUNG. PT REQUESTED IV PAIN MED, 1MG IV DILAUDID ADMINISTERED PER EMAR FOR C/O ABD PAIN. PT REPORTS ABD FULLNESS, THINKS NG TUBE IS NOT WORKING. NG TUBE CHECKED, IS FUNCTIONING CORRECTLY, DRAINING GREEN OUTPUT.
--- NOTE | 2024-08-29 05:27 | NUR ---
HAND EXPANSION ENVELOPE MAKER AND RN CHANGED PT BED LINENS WHILE PT COMPLETED CHG WIPEDOWN INDEPENDENTLY. VITALS AND I&O OBTAINED AND DOCUMENTED. NG TUBE CANNISTER EMPTIED. PT STATES NO FURTHER NEEDS AT THIS TIME. CALL LIGHT WITHIN REACH.
--- NOTE | 2024-08-29 05:30 | NUR ---
PRE-SURGERY CHLORHEXIDINE WIPEDOWN COMPLETED INDEPENDENTLY. NEW GOWN PLACED, NEW BEDDING PLACED ON BED. SCDs IN PLACE. LR WITH STRAIGHT TUBING IN ROOM. NG TUBE SET TO LIWS. PATIENT IS RESTING IN BED WITH NO FURTHER NEEDS AT THIS TIME. CALL LIGHT IN REACH.
[2024-08-29 05:38] LABS: BASOPHILS 0.2 % (0-2); EOSINOPHILS 0.5 % (0-6); HEMATOCRIT 45.1 % (35.0-50.0); HEMOGLOBIN 15.2 g/dL (12.0-18.0); LYMPHOCYTES 13.3 % (24-44); MCHC 33.6 g/dl (30-36); MCV 89.4 fl (81-99); PLATELET COUNT 183 K/uL (140-440); RBC 5.05 M/ul (4.3-5.7); RDW 13.8 (10.5-15.0)
[2024-08-29] MEDS ORDERED: ondansetron HCL 4 MG/2 ML VIAL ONE (08:17)
[2024-08-29] MEDS ORDERED: LIDOCAINE HCL 4% 5 ML AMP ONE (08:17)
[2024-08-29] MEDS ORDERED: SUGAMMADEX SODIUM 200 MG/2 ML ML ONE (08:17)
[2024-08-29] MEDS ORDERED: METOCLOPRAMIDE HCL 10 MG/2 ML SDV ONE (08:17)
[2024-08-29] MEDS ORDERED: propofoL 200 MG/20 ML VIAL ONE (08:17)
[2024-08-29] MEDS ORDERED: KETOROLAC TROMETHAMINE 30 MG/ML VIAL ONE (08:17)
[2024-08-29] MEDS ORDERED: LACTATED RINGER'S 1,000 ML IV ONE (08:17)
[2024-08-29] MEDS ORDERED: MIDAZOLAM HCL 2 MG/2 ML VIAL ONE ×2 (08:17→12:50)
[2024-08-29] MEDS ORDERED: DEXAMETHASONE SOD PHOS 4 MG/ML VIAL ONE (08:17)
[2024-08-29] MEDS ORDERED: fentaNYL citrate 100 MCG/2 ML VIAL ONE (08:17)
[2024-08-29] MEDS ORDERED: SUCCINYLCHOLINE IN 0.9% NACL 200 MG/10 ML SYRINGE ONE (08:17)
[2024-08-29] MEDS ORDERED: FAMOTIDINE 20 MG/ 2 ML VIAL ONE (08:17)
[2024-08-29] MEDS ORDERED: ROCURONIUM BROMIDE 50 MG/5 ML SYR ONE ×2 (08:17→10:57)
--- NOTE | 2024-08-29 08:17 | NUR ---
Patient awake, alert and oriented x3, no acute distress. NG in place to left nare, light green gastric content in tubing. Patient reports 4/10 abd pain, admin dilaudid 1mg iv at this time. NG suction to low intermit setting. IV abx started per order. No needs at this time.
--- NOTE | 2024-08-29 08:22 | NUR ---
DID PATIENT'S BLOOD SUGAR CHECK. ASKED PATIENT IF HE NEEDED TO WASH HIS FACE OR DO ORAL CARE AND HE SAID HE DID IT THIS MORNING ALREADY. ASKED HIM IS THERE ANYTHING ELSE AND HE SAID A COLD WASH CLOTH ON HIS FOREHEAD. GOT HIM ONE.
[2024-08-29] MEDS ORDERED: METOPROLOL TARTRATE 5 MG/5 ML VIAL ONE (08:29)
[2024-08-29] MEDS ORDERED: ENOXAPARIN SODIUM 40 MG/0.4 ML SYR SUB-Q SCH (09:00)
--- NOTE | 2024-08-29 09:35 | NUR ---
UR CONCURRENT/CLINICAL REVIEW: [facility]-MEETS INPT CRITERIA FOR [facility], VARIANCE FOR DAY 2 FOR PAIN MANAGEMENT, CONTINED NG AND PLANNED SURGICAL INTERVENTION 08/29/24. INPT 08/26/24 @ 0625 ORDER MATCHES REG CLINICALS FAXED TO [facility] FOR AUTH REVIEW 08/28/24 AND TODAY. DISCHARGE TO HOME WHEN STABLE. 09/01/24
--- NOTE | 2024-08-29 10:03 | NUR ---
Patient off floor for surgery.
--- NOTE | 2024-08-29 10:30 | NUR ---
Spoke with pts . She denies needs. Awaiting surgery.
[2024-08-29] MEDS ORDERED: KETAMINE in NS 50 MG/5 ML SYR ONE (11:19)
[2024-08-29] MEDS ORDERED: dexmedeTOMIDine HCl 200 MCG/2 ML VIAL ONE (11:19)
[2024-08-29] MEDS ORDERED: PROCHLORPERAZINE EDISYLATE 10 MG/2 ML VIAL IV PRN (11:30)
[2024-08-29] MEDS ORDERED: ondansetron HCL 4 MG/2 ML VIAL IV PRN (11:30)
[2024-08-29] MEDS ORDERED: METOCLOPRAMIDE HCL 10 MG/2 ML SDV IV PRN (11:30)
[2024-08-29] MEDS ORDERED: droPERidol 5 MG/2 ML VIAL IV PRN (11:30)
[2024-08-29] MEDS ORDERED: NALOXONE HCL 0.4 MG SYR IV PRN (11:30)
[2024-08-29] MEDS ORDERED: MORPHINE SULFATE 10 MG/ML VIAL IV PRN (11:30)
[2024-08-29] MEDS ORDERED: fentaNYL citrate 50 MCG/ML SDV IV PRN (11:30)
[2024-08-29] MEDS ORDERED: IBLOOD GLUCOSE TEST STRIP 1 EA TEST VI PRN (11:30)
[2024-08-29] MEDS ORDERED: SEVOFLURANE 250 ML BTL ONE (11:43)
--- NOTE | 2024-08-29 12:05 | NUR ---
PT NOT AVAILABLE FOR VISIT. PROVIDED PRAYER.
[2024-08-29] MEDS ORDERED: PHENYLEPHRINE HCL 10 MG/ML VIAL ONE (12:18)
[2024-08-29] MEDS ORDERED: LIDOCAINE 2% VISCOUS 6 ML SYR TOP ONE (13:00)
--- NOTE | 2024-08-29 13:01 | NUR ---
08/29/24 1301 Sheets,Tonie 1233 PT ARRIVED TO PACU WITH ORAL AIRWAY IN PLACE AND JAW THRUST USED TO MAINTAIN AIRWAY. PT NONAROUSABLE. RESP EVEN AND UNLABORED.
--- NOTE | 2024-08-29 14:11 | NUR ---
Patient back to the medical floor. Patient is awake, alert to self and place. Vital signs stable, afebrile. Patient reports pain level 2/10, tolerable per pt. Abdominal gauze dressing is CDI. Ice in place over incision. IV fluids started at this time. Patient is on 2L oxygen per oxymask, spo2 94%. NG to LIS, gastric conent is green. Bed alarm intact. Patient instructed to call if he has needs, pt reports his understanding.
[2024-08-29] MEDS ORDERED: SEVOFLURANE 250 ML BTL INH ONE (14:56)
--- NOTE | 2024-08-29 16:24 | NUR ---
Patient reported needing to have a bowel movement. 1PA assist to the BSC. Houston seemed to be leaking, RETA Alan notified. Patient returned to bed and requested not to be disturbed by visitors.
--- NOTE | 2024-08-29 16:29 | NUR ---
ADMIN DILAUDID 1MG IV FOR REPORTS OF 3/10 INCISIONAL PAIN.
--- NOTE | 2024-08-29 17:15 | NUR ---
Called Dr. Priest to ensure heparin drip does not need to be reordered. Per Dr. Priest, no heparin drip at this time, continue current order for lovenox.
--- NOTE | 2024-08-29 18:59 | NUR ---
ADMIN DILAUDID 1MG IV FOR REPORTS OF 5/10 ABDOMINAL PAIN. PT ON ROOM AIR, RESPIRATIONS NON LABORED, SPO2 92%. ABDOMINAL DRESSING REMAINS CDI. BED ALARM IN PLACE.
--- NOTE | 2024-08-29 20:21 | NUR ---
COOLER SUPERVISOR OBTAINED VITALS AND I&O AND BLOODSUGAR. NG TUBE CANNISTER EMPTIED AND FLOEY BAG EMPTIED. PT STATES NO NEEDS AT THIS TIME. CALL LIGHT WITHIN REACH.
--- NOTE | 2024-08-29 22:09 | NUR ---
Pt awake, alert and oriented to all, flat affect. many questions asked by pt and expressed understanding to instructions/teachaing done. O2 2L OXymask applied at his requests, CPOX at bedside. sats WNL. NGT L nare patent. flushed HOB elevated to 25-30o to his comofrt. LIWS draining thick green drainage. C/o abd pain and feeling nauseated. Medicated with Dilaudid 1mg and Zofran 8mg IV. Midline abd dressing in place, very faint bowel tones auscultated, denies passing gas. abd tender and soft. f/c patent draining medium yellow colored urine. not chronic. SCdS in place. 2 SL LA, IVf infusing RA. Tried to help with repositioning. All cares explained prior to, safety reassured and efforts praised.
[2024-08-30] VITALS (13 sets, daily range): BP systolic 116–136; BP diastolic 74–85
--- NOTE | 2024-08-30 00:05 | NUR ---
pt c/o abd distention and pain. flused again with 10cc water. L evelinae NGT to LIWS, started suction again. medicated with Dilaudi 1mg iv, abd soft, no distention from earlier. very faint bowel tones
--- NOTE | 2024-08-30 01:44 | NUR ---
GLOBAL COMPENSATION MANAGER OBTAINED VITALS AND I&O. CATH BAG EMPTIED AND PT REQUESTING A PAIN MED. RN NOTIFED. PT STATES NO FURTHER NEEDS AT THIS TIME. CALL LIGHT WITHIN REACH.
--- NOTE | 2024-08-30 02:09 | NUR ---
PT AWAKE, 2L O2 NC AT THIS TIME, POST OP CPOX ON AT BEDSIDE. LNGT TO LIWS IN PLACE. DRAINING THICK, DARK GREEN COLORED DRAINAGE. ABD SOFT, TENDER, MIDLINE INCISION COVERED WITH DRESSING IN PLACE, STILL FAINT BOWEL TONES AUSCULTATED. C/O 4/10 ABD PAIN, MEDICATED WITH DILAUDID 1MG IV, NO FURTHER C/O N/V. SCDS IN PLACE, F/C PATENT
--- NOTE | 2024-08-30 04:05 | NUR ---
call light answered, prn pain medication given-see emar. fresh ice pack also provdied per pt request, call light in reach. cpox remains at bedside.
[2024-08-30 05:28] LABS: BASOPHILS 0.4 % (0-2); EOSINOPHILS 0.1 % (0-6); LYMPHOCYTES 15.7 % (24-44); MCH 30.5 (27-36); MCHC 34.3 g/dl (30-36); MCV 88.9 fl (81-99); MONOCYTES 10.7 % (0-12); NEUTROPHILS 73.1 % (39-80); PLATELET COUNT 166 K/uL (140-440); RBC 4.27 M/ul (4.3-5.7); RDW 13.8 (10.5-15.0)
[2024-08-30 05:43] LABS: ANION GAP 9.8 (7-21); BUN/CREATININE RATIO 11.21 (6.0-28.6); CALCIUM 8.5 mg/dL (8.5-10.1); CREATININE, SERUM 1.07 mg/dL (0.70-1.30); MAGNESIUM 1.9 mg/dL (1.8-2.4); PHOSPHORUS, INORGANIC 3.1 mg/dL (2.5-4.9); POTASSIUM 3.8 mmol/L (3.5-5.1)
--- NOTE | 2024-08-30 05:48 | NUR ---
JR. JAVA DEVELOPER OBTAINED VITALS AND I&O. NG TUBE CANNISTER AND WILKINSON BAG EMPTIED. PT REQUESTING PAIN AND NAUSEA MEDS. PRIMARY RN NOTIFED. PT STATES NO FURTHER NEEDS AT THIS TIME. CALL LIGHT WITHIN REACH AND BED ALARM ON.
--- NOTE | 2024-08-30 06:31 | NUR ---
pt c/o abd pain 4/10, faint bowel tones present, midline abd dressing intact. c/o feeling nauseated, medicated with zofran 4mg IV. tolerating NPO status NGT L nare to LIWS draining thick green colored drainage, f/c patent, scds in place. IVf infusing, does own oral care. Quiet pack given on requests
--- NOTE | 2024-08-30 07:05 | OR ---
[facility] [address], [place] [address] Signed DATE OF OPERATION: 08/29/2024 SURGEON: Jan Cardozo MD PREOPERATIVE DIAGNOSIS: Small bowel obstruction. POSTOPERATIVE DIAGNOSIS: Small bowel obstruction from interloop adhesion with necrotic small bowel (22 cm). PROCEDURES: 1. Lysis of adhesion. 2. Small bowel resection with [id number]-[id number] anastomosis, hand-sewn in two layers. ESTIMATED BLOOD LOSS: Minimal. INDICATIONS FOR THE PROCEDURE: Farhad is a 43-year-old gentleman with a body mass index of 34. When he was just 4 years old, he had an open appendectomy and had a drain for two weeks. He said it nearly killed him. He said he has had trouble with his intestines pretty much his whole life. His spent a lot of time on the Internet reading and thought maybe he had Crohn disease or celiac disease or something else. He finally came in to our emergency room with five days of what he thought was constipation with vomiting and abdominal pain. He ended up coming to the ER a couple of days apart. Of course when he was given some IV fluids and Zofran, he felt better. The ultrasound on his first visit was unremarkable. When he came back, his white count was 12.1 and he was dehydrated with a urine specific gravity greater than 1.03. Chest x-ray was unremarkable. 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 I have been asked to admit him as a general surgeon on-call. He has had an NG tube along with heparin drip. He has been doing well. He started to have bilious output. He and his had asked me about small bowel follow-through. We went and did that yesterday and it clearly showed his continued dilated loops of small bowel with bowel obstruction. We suctioned out over 400 mL of fluid after the small bowel follow-through. I turned his heparin drip off last night at midnight. I met with Farhad earlier this morning. I explained to him and his that he needed to undergo his laparotomy with lysis of adhesions and possible small bowel resection. He understands expected introp and postop course. There is risk to that surgery including, but not limited to bleeding, infection, scarring, change in contour of the skin, damage to bowel, anastomotic leak, recurrent adhesions with small Electronically Signed By: JAN CARDOZO MD 08/30/24 0705 PATIENT NAME: FARHAD KWONG OPERATIVE REPORT DATE OF : 76 REPORT #: [id number] PHYSICIAN: JAN CARDOZO MD PCP: NOEMI MANCINI MD REPORT IS CONFIDENTIAL AND NOT TO BE RELEASED WITHOUT AUTHORIZATION [address] [address] Signed bowel obstruction, incisional hernias and other unforeseen comorbidities including because of his thrombus in his SMV. He and his had expressed understanding and wished to proceed. DESCRIPTION OF PROCEDURE: Farhad was taken into the operating room and placed in the supine position under general endotracheal tube anesthesia. Houston catheter was inserted with return of clear yellow urine without difficulty. He was given subcutaneous Lovenox this morning. He has been on Rocephin and Flagyl since yesterday. He was then prepped and draped in the usual sterile fashion. We made a standard periumbilical midline incision and entered the abdomen without difficulty. He had some free fluid in the abdomen. It took just a minute to feel around and I found the interloop adhesion with the bowel in his mid abdomen. It came up nicely just above the fascia. One could easily see the dilated proximal bowel and the more decompressed distal bowel. The interloop was becoming necrotic. We had to divide that on either side with the linear stapler. That loop of bowel was probably 22 to 25 cm in length. We then brought the bowel [id number] and did a standard anastomosis in two layers with Vicryl silk sutures. The anastomosis was at least 2.5, maybe 3 cm in length. We closed the mesenteric rent after it was divided with Pean clamps and oversewn with 3-0 and 2-0 Vicryl sutures. We used interrupted 3-0 Vicryl suture and brought the edges back together to close the rent in the mesentery. We noticed that just beyond our anastomosis, probably 10 cm at most was a small Meckel diverticulum, it was quite healthy. Of course, we left that alone today given the seriousness of his current situation. It was taking abdominal fluid as we were operating. His urine output is on the low side. Once we got the anastomosis done, we were able to irrigate that area and push the anastomosis down underneath the omentum. We brought the midline fascia back together with interrupted [id number] and simple #1 PDS sutures. We injected local anesthetic in the abdominal wall. The abdominal incision was irrigated and suctioned out until clear. We brought the dermis back together with interrupted 3-0 subcuticular Monocryl sutures. Roopa were used to bring the skin back together. Dry gauze and tape was then applied. We left his Houston catheter in place. Farhad was then weaned from his anesthesia, extubated in the OR, taken to the recovery room in stable, but serious condition. Jan Cardozo MD ALB/MODL /[id number] Electronically Signed By: JAN CARDOZO MD 08/30/24 0705 PATIENT NAME: FARHAD KWONG OPERATIVE REPORT DATE OF : 76 REPORT #: [id number] PHYSICIAN: JAN CARDOZO MD PCP: NOEMI MANCINI MD REPORT IS CONFIDENTIAL AND NOT TO BE RELEASED WITHOUT AUTHORIZATION [address] [place], [place] [address] Signed cc: MD Jan Carter MD Patient Chart Copies: NOEMI MANCINI MD, ANDREW L MD ~ Electronically Signed By: JAN CARDOZO MD 08/30/24 0705 PATIENT NAME: FARHAD KWONG OPERATIVE REPORT DATE OF : 76 REPORT #: [id number] PHYSICIAN: JAN CARDOZO MD PCP: NOEMI MANCINI MD REPORT IS CONFIDENTIAL AND NOT TO BE RELEASED WITHOUT AUTHORIZATION
[2024-08-30] MEDS ORDERED: MAGNESIUM SULFATE 2 GM/50 ML BAG IV ONE (07:15)
--- NOTE | 2024-08-30 08:22 | NUR ---
Admin dilaudid 1mg iv for reports of 5/10 abdominal pain.
--- NOTE | 2024-08-30 08:27 | NUR ---
Board has been updated and call light has been placed within reach
--- NOTE | 2024-08-30 09:45 | NUR ---
Verbal order from Dr. Priest to remove velazco catheter. Velazco catheter removed, cath tip intact, pt tolerated well well. Pt due to void.
--- NOTE | 2024-08-30 11:46 | NUR ---
Patient ambulated in the wallway, tolerated well.
--- NOTE | 2024-08-30 12:03 | NUR ---
Admin dilaudid 1mg iv at this time for reports of 5/10 abdominal pain.
--- NOTE | 2024-08-30 14:28 | NUR ---
Admin zofran 4mg iv and dilaudid 1mg iv for reports of nausea and 5/10 abdominal pain. Patient ambulated in hallway with staff assist, tolerated well.
--- NOTE | 2024-08-30 17:30 | NUR ---
Admin dilaudid 1mg iv at this time for reports of 5/10 abdominal pain.
--- NOTE | 2024-08-30 19:18 | NUR ---
Admin dilaudid 1mg iv for reports of 5/10 abdominal pain.
--- NOTE | 2024-08-30 22:00 | NUR ---
PT REQUESTING PAIN MEDICATION AND NAUSEA MEDICATION BEFORE BED, 4MG IV ZOFRAN AND 1MG IV DILAUDID GIVEN. OXYGEN 2L/NC PLACED FOR SLEEP.
--- NOTE | 2024-08-30 23:10 | NUR ---
Awakens easily, wearing eye mask and ear plugs. pleasant and cooperative. on room air. Lnare NGT to LIWS draining pump servicer helper green colored drainage. flushed as per protocol. Pt denies rectal flatus but oral burping noted. no c/o n/v or pain at this time. was medicated earlier. clear lungs, abd soft, tender danette upper abd and faint distant lower abd. midline abd incision w carlos, open to air, edges well approximated. dry, normal skin coloring. scds in place. IVf infusing w/o problems. used urinal, voiding QS tea colored urine.
[2024-08-31] VITALS (9 sets, daily range): BP systolic 126–133; BP diastolic 71–78
--- NOTE | 2024-08-31 01:04 | NUR ---
RESTING, EYES CLOSED,, ON ROOM AIR, WEARING EYE MASK AND EAR PLUGS PER COMFORT. L NARE NGT TO LIWS, PATENT DRAINING GREEN COLORED DRAINAGE. IVF INFUSING W/O PROBLEMS. USES URINAL. SCDS IN PLACE
--- NOTE | 2024-08-31 02:10 | NUR ---
C/O ABD PAIN, MEDICATE WITH DILAUDID 1MG IV. IVF INFUSING W/O PROBLEMS RAC, 2 L SL INTACT. L NGT TO LIWS, PATENT, ABD MIDLINE INCISION WITH MARIA ISABEL KEVIN, NO DRAINAGE, SLIGHTLY PINKISH COLORING TO R LOWER AREA OF INCISION. ABD SOFT, TENDER. DARRELL ALL 4 QUADS, BURPING, DENIES PASSING RECTAL GAS. SCDS IN PLACE. ICE CHIPS FOR COMFORT. USED URINAL, VODIIDNG QS TEA COLORED URINE.
--- NOTE | 2024-08-31 04:15 | NUR ---
awake, c/o abd cramping, medicated with dilaudid 1mg IV. IVF infusing w/o problems. L NGT to LIWs patent draining green colored drainage. flushed, tolerated well. abd incision midline open to air, carlos in place. redness aropund incision noted. incision edges well approximated, dry, tender and soft, DARRELL. denies passing rectal flatus. Oral burping noted. tolerating small amount of ice chips. scds in place. turns and repositions self in bed, used urinal, voiding QS tea colored with sediments.encouraged to ambulate QID in am as per orders. Flat affect, cont to encourage and reassure
[2024-08-31 05:27] LABS: BASOPHILS 0.4 % (0-2); EOSINOPHILS 1.1 % (0-6); HEMATOCRIT 37.7 % (35.0-50.0); HEMOGLOBIN 12.7 g/dL (12.0-18.0); LYMPHOCYTES 18.7 % (24-44); MCH 30.3 (27-36); MCHC 33.8 g/dl (30-36); MCV 89.7 fl (81-99); MONOCYTES 11.2 % (0-12); NEUTROPHILS 68.6 % (39-80); PLATELET COUNT 177 K/uL (140-440); RDW 13.6 (10.5-15.0)
[2024-08-31 05:45] LABS: ANION GAP 11.7 (7-21); BUN/CREATININE RATIO 15.3 (6.0-28.6); CALCIUM 8.3 mg/dL (8.5-10.1); CREATININE, SERUM 0.98 mg/dL (0.70-1.30); PHOSPHORUS, INORGANIC 2.8 mg/dL (2.5-4.9); POTASSIUM 3.7 mmol/L (3.5-5.1)
--- NOTE | 2024-08-31 06:43 | NUR ---
RESTING, EYES CLOSED, O2 2LNC IN PLACE, L NARE NGT TO LIWS. IVF INFUSING, SCDS IN PLACE.
--- NOTE | 2024-08-31 07:02 | NUR ---
MEDICATED WITH DILAUDID 1MG IV PER 10 ABD PAIN AND ZOFRAN 4MG IV FEELING NAUSEATED. L NARE NGT TO LIWS IN PLACE, PATENT. VOIDING TEA COLORED URINE, SCDS IN PLACE
--- NOTE | 2024-08-31 07:48 | NUR ---
PT RESTING EYES CLOSED AT TIME OF SHIFT REPORT, LEFT UNDISTRUBED. CALL LIGHT IS IN REACH.
--- NOTE | 2024-08-31 08:09 | NUR ---
Board has been updated and call light has been placed within reach
--- NOTE | 2024-08-31 08:54 | NUR ---
DR CARDOZO IN TO SEE PT
--- NOTE | 2024-08-31 10:24 | NUR ---
PT CONTINUES RESTING IN BED IS PRESENT. SHOWER SET UP FOR LATER PT ALSO AGREES TO AMBULATE SEVERAL TIMES THIS SHIFT. NO NEEDS AT THIS TIME
--- NOTE | 2024-08-31 11:20 | NUR ---
PT UP TO TOILET HAS A LIQUID BOWEL MOVEMENT MARY RED BLOOD IS PRESENT. PT AMBULATES A LAP IN THE SHEEHAN THEN RETURNS TO BED TO REST. REMAINS PRESENT IN THE ROOM. PT MEDICATED FOR ABDOMINAL DISCOMFORT. PT GIVEN ICE CHIPS FOR COMFORT DENIES OTHER NEEDS AT THIS TIME
--- NOTE | 2024-08-31 14:05 | NUR ---
PT HAS VISITORS HE'S SITTING UP IN BED TALKING, DENIES NEEDS AT THIS TIME
--- NOTE | 2024-08-31 15:38 | NUR ---
PT RESTING IN BED SHAVING HIS FACE. AGREES TO AMBULATE THE HALLS THEN RETURN TO SHOWER. REMAINS WITH HIM NO C/O PAIN OR REQUEST OF NEEDS
--- NOTE | 2024-08-31 16:00 | NUR ---
FULL LAP WELL TOLERAATED, PT RETURNS AND SHOWERS. PASSES LARGE LIQUID STOOL HAS LARGE AMOUNT OF MARY BLOOD IN IT IT DID THIS MORNING. DR CARDOZO NOTIFIED NO NEW ORDERS.
--- NOTE | 2024-08-31 18:45 | NUR ---
PATIENT IN BED RESTING AT THIS TIME. VITALS AND I&O'S DONE AND CHARTED. CALL LIGHT IN REACH. NO FURTHER NEEDS AT THIS TIME.
--- NOTE | 2024-08-31 20:08 | NUR ---
in bed, room air, L nare NGT to LIWS draining light green drainage.. abd soft, tender, midline abd incision w carlos and light redness around incision note. DARRELL, had bm's earlier. uses urinal. IVF infusing w/o problems. c/o 10/06 abd pain, medicated with Dilaudid, CBG 107, tolerating NPO status, does own oral care. tolerating ice chips. scds in place.
--- NOTE | 2024-08-31 20:11 | NUR ---
declined home inhaler
[2024-08-31] MEDS ORDERED: IBLOOD GLUCOSE TEST STRIP 1 EA TEST VI SCH (21:00)
--- NOTE | 2024-08-31 23:08 | NUR ---
awakens easily, L nare NGT to LIWS patent, draining thin light green drainage. pt c/o abd pain 3/10 medicated with Dilaudid IV. abd soft, tender, midline incisionw ith carlos had several bm's in am. SCDs in place. ivf infusing. cooperative with vitals.
[2024-09-01] VITALS (8 sets, daily range): BP systolic 117–137; BP diastolic 69–78
--- NOTE | 2024-09-01 01:10 | NUR ---
using 2L O2 NC at hs per Evita mariscal patent. IVf infusing w/o problems.. scds in place, repositions self in bed.
--- NOTE | 2024-09-01 02:06 | NUR ---
O2 2LNC, L nare NGT to SHEN, patent. abd incision carlos in place, edges well approx. soft, tender, DARRELL. c/o feeling nauseated, medicated with Zofran 4mg IV
--- NOTE | 2024-09-01 03:40 | NUR ---
RESTING, EYES CLOSED, USING EYE NIGHT MASK, O2 2LNC IN PLACE, L NARE NGT TO LIWS IN PLACE, DRAINING LIGHT GREEN DRAINAGE. USES URINAL, SCD'S IN PLACE, IVF INFUSING
[2024-09-01 05:27] LABS: BASOPHILS 0.7 % (0-2); EOSINOPHILS 1.7 % (0-6); HEMATOCRIT 38.4 % (35.0-50.0); HEMOGLOBIN 13.2 g/dL (12.0-18.0); LYMPHOCYTES 27.9 % (24-44); MCH 30.3 (27-36); MCHC 34.3 g/dl (30-36); MCV 88.4 fl (81-99); MONOCYTES 11.6 % (0-12); NEUTROPHILS 58.1 % (39-80); PLATELET COUNT 180 K/uL (140-440); RBC 4.34 M/ul (4.3-5.7); RDW 13.4 (10.5-15.0)
[2024-09-01 05:47] LABS: ANION GAP 10.4 (7-21); BUN/CREATININE RATIO 11.76 (6.0-28.6); CALCIUM 8.5 mg/dL (8.5-10.1); CREATININE, SERUM 1.02 mg/dL (0.70-1.30); MAGNESIUM 1.7 mg/dL (1.8-2.4); PHOSPHORUS, INORGANIC 3.2 mg/dL (2.5-4.9); POTASSIUM 3.4 mmol/L (3.5-5.1)
--- NOTE | 2024-09-01 06:24 | NUR ---
Awake, using O2 2LNC per comfort at night time. L nare NGT patent draining light green colored drainage. voiding QS tea colored urine. IVF infusing scds in place. Dr Priest in room
[2024-09-01] MEDS ORDERED: POTASSIUM CHLORIDE 40 MEQ in DEXTROSE 5% 250 ML IV ONE (06:30)
[2024-09-01] MEDS ORDERED: MAGNESIUM SULFATE 2 GM/50 ML BAG IV ONE (06:30)
--- NOTE | 2024-09-01 06:43 | NUR ---
FRESH ICE APPROX 1/4 CUP GIVEN PER PT REQUEST.
[2024-09-01] MEDS ORDERED: POTASSIUM CHLORIDE 10 MEQ/100 ML BAG IV SCH (06:45)
--- NOTE | 2024-09-01 06:49 | NUR ---
mag rider IV started, med teaching donewi pt, no questions
--- NOTE | 2024-09-01 07:36 | NUR ---
PT RESTING EYES CLOSED AT TIME OF SHIFT REPORT, LEFT UNDISTURBED. CALL LIGHT AND NEEDED ITEMS IN REACH.
--- NOTE | 2024-09-01 10:44 | NUR ---
PATIENT IN BED. COGNOS DEVELOPER TOOK VITALS AND I&O'S. CALL LIGHT WITHIN REACH. NO OTHER NEEDS AT THIS TIME.
--- NOTE | 2024-09-01 10:57 | NUR ---
PT HAS CONTINUED RESTING EYES CLOSED SINCE START OF SHIFT AWAKENS WHEN THE ROOM IS ENTERED DENIES PAIN OR NEEDS RETURNS TO DOZING. CALLS FOR UPDATE STATES HE IS NOT A MORNING PERSON AND GENERALLY SLEEPS UNTIL 11 AM DAILY. VISITOR IS PRESENT SITTING QUIETLY IN THE ROOM. CALL LIGHT IN REACH OF PT.
--- NOTE | 2024-09-01 11:00 | NUR ---
UR CONCURRENT REVIEW: MCG-DOES NOT MEET GL DAY 2, VIARANCE COMPLETED [facility] INPT 08/25/23 @ 2041 AUTH RECVD 08/25-09/01/24 REF#[id number] DISCHARGE TO HOME WHEN STABLE 09/03/24
--- NOTE | 2024-09-01 12:07 | NUR ---
PT CONTINUES RESTING EYES CLOSED
--- NOTE | 2024-09-01 12:48 | NUR ---
PT NOTIFIED IT'S TIME TO GET UP AND GET AROUND, AMBULATE, DO SELF CARES ETC. PT REPORTS HE WAS JUST ABOUT TO CALL THINKING HIS BOWELS MIGHT BE READY TO MOVE AGAIN. TO TO BATHROOM AFTER LINES MANAGED
--- NOTE | 2024-09-01 13:00 | NUR ---
PT PASSES A SMALL AMOUNT OF STOOL WELL A LOT OF GAS. NO BLOOD PRESENT IN THE STOOL WAS YESTERDAY. PT AMBULATES 3 LAPS RETURNS TO REST IN BED DECLINING OFFER OF THE CHAIR. SCD'S IN PLACE FRESH ICE CHIPS PROVIDED
--- NOTE | 2024-09-01 14:48 | NUR ---
PATIENT IN BED AT THIS TIME. HARDWOOD FINISHER DID I&O'S AND VITALS. CALL LIGHT WITHIN REACH. NOTHING ELSE NEEDED AT THIS TIME.
--- NOTE | 2024-09-01 15:00 | NUR ---
Pts , Rosio stopped by my office and asked if I can visit with them. In and spoke with Rosio and Farhad. Low is concerned about a referral to hematology and how soon this will happen. She was looking on line. I did discuss with her, these appointments will most like be a ways out. I let her know Marlon is a Laundry Aide, but there are also Laundry Aide in [place], [facility], and [place]. Farhad would like to stay closer to home. Let them know I will check with Dr. Priest to see what he plans for this pt.
--- NOTE | 2024-09-01 16:09 | NUR ---
PT RESTING IN BED C/O SENSATION OF BEING TOO WARM AFTER LAST PAIN MED ADMINISTERED. EDUCATION PROVIDED UNDERSTANDING VERBALIZED
--- NOTE | 2024-09-01 16:26 | NUR ---
PT UP AMBULATING THE SHEEHAN IS WITH HIM
--- NOTE | 2024-09-01 18:18 | NUR ---
PT UP AMBULATING THE SHEEHAN WITH HIS
--- NOTE | 2024-09-01 18:39 | NUR ---
SCDs were unhooked and RN unhooked NG tube so the patient could ambulate hallways. Patient returned to bed once done, everything was rehooked and restarted, and ice chips were given for comfort.
--- NOTE | 2024-09-01 20:31 | NUR ---
Pt in bed, hob elevated at 25o, L nare NGT to LIWS patent, draining thin light grreen drainage. midline abd incision w carlos in place. well approx no drainage, abd soft, tender to tocuh, DARRELL, had bm's this am. c/o 3/10 abd pain. medicated with Dilaudid 1mg IV. SL LH, IVF infusing RW w/o problems, both slightly sluggish when flushing, no redness noted. scds in place. repositions self in bed. O2 2l at HS/PRN. pleasnt and cooperative, more talkative
--- NOTE | 2024-09-01 23:10 | NUR ---
RESTING, EYES CLOSED, WEARING EYE MASK, NO DISTRESS, USING 2LNC O2 AT HS ONLY. IVF INFUSING W/O PROBLEMS. USES URINAL. SCDS IN PLACE,
[2024-09-02] VITALS (10 sets, daily range): BP systolic 114–131; BP diastolic 67–79
--- NOTE | 2024-09-02 00:23 | NUR ---
UP TO BRP, NO BM, VOIDING LIGHT TEA COLORED URINE. BACK TO BED, TOLERATED WELL, C/O 5/10 ABD PAIN, MEDICATED WITH DILAUDID 1MG IV. NGT TO LIWS, IVF INFUSING, SCDS IN PLACE
--- NOTE | 2024-09-02 03:24 | NUR ---
awake, playing with phone. on room air at this time. Evita riley NGT patent to LISARWAT drainign green colored drainage. no c/o pain or n/v at this time. IVF infusing. SCD's inplace, warm blanket given on requests, tolerating NPO status. Voiding tea colored urine, uses urinal
--- NOTE | 2024-09-02 05:34 | NUR ---
pt awake, on room air, midline abd incision with carlos in place. soft, tender, danette, Diaphoretic on awakening, skin care done fresh gown and bed linen changed. Pt walked up to [facility] and did own care. NGT patent to LIWS, draining 400cc ofd dark thick green colored drainage. thick green colored drainage. Pt received no ice chips from 2329 to now.
[2024-09-02 05:46] LABS: BASOPHILS 1.1 % (0-2); EOSINOPHILS 1.7 % (0-6); HEMATOCRIT 43.7 % (35.0-50.0); HEMOGLOBIN 14.9 g/dL (12.0-18.0); LYMPHOCYTES 32.2 % (24-44); MCH 30.1 (27-36); MCHC 34.1 g/dl (30-36); MCV 88.3 fl (81-99); MONOCYTES 8.5 % (0-12); NEUTROPHILS 56.5 % (39-80); PLATELET COUNT 239 K/uL (140-440); RBC 4.94 M/ul (4.3-5.7); RDW 13.7 (10.5-15.0)
[2024-09-02 06:04] LABS: ANION GAP 9.2 (7-21); BUN/CREATININE RATIO 8.62 (6.0-28.6); CALCIUM 8.8 mg/dL (8.5-10.1); CREATININE, SERUM 1.16 mg/dL (0.70-1.30); MAGNESIUM 1.9 mg/dL (1.8-2.4); PHOSPHORUS, INORGANIC 3.5 mg/dL (2.5-4.9); POTASSIUM 3.2 mmol/L (3.5-5.1)
[2024-09-02] MEDS ORDERED: MAGNESIUM SULFATE 2 GM/50 ML BAG IV ONE (06:30)
[2024-09-02] MEDS ORDERED: POTASSIUM CHLORIDE 40 MEQ in DEXTROSE 5% 250 ML IV ONE (06:30)
--- NOTE | 2024-09-02 06:53 | NUR ---
Mag hurleyer 2gram IV started as per new orders
--- NOTE | 2024-09-02 07:47 | NUR ---
PEGGY REPORT RECIEVED FROM RETA ZUNIGA. PT LAYING IN BED ALERT AND ORIENTED, PT NG IN PLACE, AND SECURED TO GOWN. PT HAS NO CONCERNS AT THIS TIME. PT CALL LIGHT IN REACH.
--- NOTE | 2024-09-02 08:40 | NUR ---
PT AMBULATED TO RESTROOM SBA WITH IV DELIVERY PROFESSIONAL. PT NG TUBE WAS CLAMPED PER MD ORDERS VIA NURSE NOTIFY. PT RETURNED TO BED WITH CALL LIGHT IN REACH. PT HAS NO CONCERNS AT THIS TIME.
--- NOTE | 2024-09-02 09:08 | NUR ---
PATIENT IN BED AT THIS TIME. SAMPLER FIRST WENT INTO PATIENTS ROOM FOR HOURLY ROUNDS AND BLOODSUGAR CHECK. SAMPLER FIRST NOTIFIED RN OF BLOODSUGAR. CALL LIGHT WITHIN REACH, NO FURTHER NEEDS AT THIS TIME.
[2024-09-02] MEDS ORDERED: HEPARIN SOD,PORK IN 0.45% NACL 500 ML IV SCH (09:15)
[2024-09-02] MEDS ORDERED: HEParin SOD (PORCINE) 5,000 UNIT/ML SYR IV PRN (09:15)
[2024-09-02 09:33] LABS: INR 1.14 (0.80-1.30); PROTIME 14.5 Sec (11.2-14.2)
[2024-09-02 09:35] LABS: PARTIAL THROMBOPLASTIN TIME 31.1 Sec (22.9-41.3)
--- NOTE | 2024-09-02 10:02 | NUR ---
PATIENT IN BED AT THIS TIME. PLANT ENGINEER CHARTED VITALS AND I&O'S. CALL LIGHT WITHIN REACH, NO FURTHER NEEDS AT THIS TIME.
--- NOTE | 2024-09-02 10:27 | NUR ---
VISITED DURING SPIRITUAL CARE ROUNDS. PT APPEARED TO BE SLEEPING. DID NOT DISTURB. PROVIDED PRAYER.
--- NOTE | 2024-09-02 11:13 | NUR ---
HEPARIN DRIP ADMINISTERING RETA BORGES SECOND VERIFY.
--- NOTE | 2024-09-02 11:26 | NUR ---
PT LAYING IN BED, HEPRIN DRIP WAS STARTED BY RETA PERALES AND RETA CEJA. PT RESTING COMFORTABLY WITH EYES CLOSED AND CHEST RISE BILAT, NG TUBE INPLACE AND CLAMPED PER ORDERS. PT HAS CALL LIGHT IN REACH.
--- NOTE | 2024-09-02 11:50 | NUR ---
In and spoke with Farhad and his , Rosio. Updated I spoke with Dr. Mina and read pts notes. I also contacted Dr. Mason's office and they requested I send pts chart for review. would prefer to use a different Rail Transit Operator. I let her know they will need to go through their pcp and she states understanding. She asks about a form she had requested. They were to leave this week on vacation and had to cancel as pt had surgery. She needs the form completed as she paid for travel insurance. I was able to find the form on the chart. Dr. Mina signed and date of admission and reason was surgery completed. Form returned to pts .
--- NOTE | 2024-09-02 11:55 | NUR ---
PATIENT IN BED AT THIS TIME. LATHE TURNER WENT INTO PATIENTS ROOM FOR HOURLY ROUNDS. CALL LIGHT WITHIN REACH, NO FURTHER NEEDS.
--- NOTE | 2024-09-02 11:58 | NUR ---
pt complaining for nose/abd pain. prn dilaudid administered (per emar). at bedside, call light in reach. pt states he was able to have a small bm
--- NOTE | 2024-09-02 12:15 | NUR ---
PT LAYING IN BED WITH NG CLAMPED. PT HAD QUESTIONS ON POC AND WAS AGREEABLE WITH POC. PT CALL LIGHT IN REACH.
--- NOTE | 2024-09-02 13:24 | PATH ---
[facility] [address], [place] [address] Signed SPECIMEN(S): A ILEUM SPECIMEN SOURCE: A. ILEUM CLINICAL HISTORY: Ileum-SBO, stitch linda proximal end FINAL PATHOLOGIC DIAGNOSIS: Segment of benign terminal ileum, resection: - Ileal ulceration with necrosis and transmural inflammation. - Resection margins viable with mild acute serositis. - No granulomas, dysplasia, or malignancy identified. COMMENT: The etiology for the ulcer and significant inflammation is unclear. However, possible etiologies would include focal necrosis or drug effect. Changes diagnostic of inflammatory bowel disease are not identified. [facility] MICROSCOPIC EXAMINATION: Histologic sections of all submitted blocks are examined by light microscopy. These findings, together with the gross examination, support the pathologic diagnosis. GROSS DESCRIPTION: The specimen, labeled and designated "Hostephen, A, " and designated on the requisition "ileum," is received in formalin and consists of one unoriented segment of small bowel that is 27.5 cm in length and has an average internal circumference of 5.5 cm. A black sutures present identifying the proximal and. The serosal surface is pink-red with a dusky red discoloration that is 14.5 cm in length. The dusky red discoloration is 5.7 cm from the distal resection margin and 6.1 cm from the proximal resection margin. Upon opening mucosal surface is red and finely granular with a dark red and indurated mucosa corresponding to the previously described discoloration. Sectioning through the bowel wall reveals a transmural discoloration. The bowel wall has an average thickness of 0.9 cm. Sectioning through the mesentery reveals no thrombi grossly. Disability Case Manager sections are submitted three cassettes. PATIENT NAME: MARIE KWONG PATHOLOGY DATE OF : 76 REPORT #: [id number] PHYSICIAN: IGLESIA PATHOLOGY PCP: NOEMI MANCINI MD REPORT IS CONFIDENTIAL AND NOT TO BE RELEASED WITHOUT AUTHORIZATION [facility] [address], [place] [address] Signed Cassette Summary: (A1) proximal resection margin, shave (A2) distal resection margin, shave (A3) bowel wall with area of transmural discoloration to uninvolved bowel wall FB (under the direct supervision of a pathologist) The Gross Description was prepared using a voice recognition system. The report was reviewed for accuracy; however, sound-alike word errors, addition and/or deletions may occur. If there is any question about this report, please contact Client Services. ADDITIONAL NOTES: Immunohistochemical and/or in situ hybridization studies if performed in this case included appropriate positive controls that reacted as expected. This test was developed and its performance characteristics determined by [facility]. It has not been cleared or approved by the U.S. Food and Drug Administration. The FDA has determined that such clearance or approval is not necessary. This test is used for clinical purposes. It should not be regarded as investigational or for research. [facility] is certified under the Clinical Laboratory Improvement Amendments of 1988 (CLIA) as qualified to perform high complexity clinical laboratory testing. PERFORMING LABORATORY: Technical component was performed by [facility], [address] [place] [id number] (CLIA# [id number]). Professional interpretation was performed by [facility], [address] [place] [id number] (CLIA#: [id number]). Diagnostician: Yung Fernandez MD Pathologist Electronically Signed 09/02/2024 Copies: ~ PATIENT NAME: MARIE KWONG SAW PATHOLOGY DATE OF : 76 REPORT #: [id number] PHYSICIAN: IGLESIA PATHOLOGY PCP: NOEMI MANCINI MD REPORT IS CONFIDENTIAL AND NOT TO BE RELEASED WITHOUT AUTHORIZATION
--- NOTE | 2024-09-02 14:48 | NUR ---
PT LAYING IN BED WITH PRESENT IN ROOM. PT REQUESTED ICE CHIPS AND WAS GIVEN 1/4 CUP OF ICE CHIPS. PT HAS NO OTHER REQUESTS AT THIS TIME. CALL LIGHT IN REACH.
--- NOTE | 2024-09-02 15:50 | NUR ---
PT LAYING IN BED, PT DOES NOT REPORT ANY NEEDS AT THIS TIME, PT CALL LIGHT IS IN REACH.
--- NOTE | 2024-09-02 17:56 | NUR ---
LAB UNABLE TO COME DRAW ON PT, RETA PERALES COMPLETED LAB DRAW ON PT RIGHT AC, SPECIMEN SENT TO LAB. PT ALSO REPORTED PAIN FROM NG TUBE AND RECIEVED DILAUDID (SEE EMAR). PT CALL LIGHT IN REACH.
--- NOTE | 2024-09-02 18:11 | NUR ---
PATIENT IN BED AT THIS TIME. INSOLE DOUBLER CHARTED VITALS AND I&O'S. CALL LIGHT WITH IN REACH. NOTHING ELSE NEEDED AT THIS TIME.
--- NOTE | 2024-09-02 18:44 | NUR ---
PT AMBULATED TO REST ROOM INDEPENDANTLY, PT THEN REQUESTED TO AMBULATED IN THE MED/SURG DEPARTMENT, PT WALKED 4 LAPS AND RETURNED TO ROOM AND IS LAYING IN BED. PT HAS NO CONCERNS AT THIS TIME CALL LIGHT IN REACH.
--- NOTE | 2024-09-02 19:17 | NUR ---
SHIFT REPORT RECEIVED FROM PATRICIA MCDUFFIE CJ AND LEXX AT BEDSIDE, pt AWAKE AND RESTING IN BED. ON RA, RR EVEN AND UNLABORED. NG TUBE TO LEFT ARE CLAMPED. IV FLUIDS INFUSING AT 75MLS/HR TO RIGHT HAND WNL. HEPARIN DRIP INFUSING AT 15 UNITS/KG/HR TO LEFT FOREARM, SITE WNL. NO NEEDS OR CONCERNS VERBALZIED, CALL LIGHT IN REACH.
--- NOTE | 2024-09-02 21:10 | NUR ---
ASSESSMENT COMPLETE, ORDERED ACCUCHECK COMPLETED AND RECORDED. pt REPORTS PAIN TOLERABLE AT THIS TIME, BUT STATES, "I'LL NEED SOMETHING FOR TO HELP ME SLEEP BEFORE I GOT TO BED. BUT, I'M OKAY FOR NOW". CMS INTACT, SCD'S IN PLACE. NG TUBE PATENT TO LEFT NARE, FLSUHED WITH 40MLS TAP WATER AND REMAINS CLAMPED. pt DENIES NAUSEA, BT ACTIVE IN ALL QUADRANTS. ABD INCISION WNL, MARIA ISABEL IN PLACE. IV SITE WNL, NEW BAG IV FLUIDS INFUSING DIRECTED, BRISK BLOOD RETURN NOTED. HEPARING DRIP REMAINS INFUSING AT 15 UNITS/KG/HR-VERIFIED PUMP SETTINGS WITH SECOND RN MAYO. NEXT DRAW SCHEDULED FOR 0015. CALL LIGHT IN REACH, pt DENIES NEEDS OR CONCERNS AT THIS TIME.
--- NOTE | 2024-09-02 22:37 | NUR ---
pt INDEPENDENT, AMBULATING IN HALLWAY WITH FATHER AT BEDSIDE. NO NEEDS OR CONCERNS VERBALIZED BY pt.
--- NOTE | 2024-09-02 23:32 | NUR ---
prn pain medication given for pain to abd and r/t clamped ng tube-see emar. scd's back in place. iv sites x2 wnl. pt placed on 1-1.5lnc for comofrt while sleeping d/t ng tubing. call light in reach, spo2 96%, hr wnl.
[2024-09-03] VITALS (8 sets, daily range): BP systolic 106–117; BP diastolic 59–72
--- NOTE | 2024-09-03 00:39 | NUR ---
LAB MARY PTT AT 0018-RESULTS NOTIFIED TO BE 55 AT THIS TIME. DISCUSSED TITRATION FLOWSHEET WITH CRULLER MAKERRETA HUBER-DR CARDOZO HAS NURSE NOTIFY WITH SPECIALIZED DESIRED PTT GOAL OF 40-60 (ALSO MENTIONED IN PROGRESS NOTE). BASED ON THIS, RATE OF 15 UNITS/KG/HR REMAINS UNCHANGED AND CONTINUES TO INFUSE, NEXT ORDERED PTT TO BE AT 0618. ORDER PUT IN BY CRULLER MAKER.
--- NOTE | 2024-09-03 02:19 | NUR ---
pump alarming, issue resolved. iv sites x2 wnl, iv fluids ifnusing via right hand iv site and heparin gttp infusing via left wrist iv site. focused assessment complete, no acute changes. pt recently returned from bathroom-voided 200mls yellow urine. scd's back in place. curtain slightly pulled up so pt can look out window and watch snow fall. no additional needs or concerns, call light in reach.
--- NOTE | 2024-09-03 04:07 | NUR ---
rounded on pt, pt resting in bed on back. on ra, rr even and unlabored. no distress noted. pt appears comfortable and relaxed, call light in reach.
[2024-09-03 06:19] LABS: BASOPHILS 0.5 % (0-2); EOSINOPHILS 1.3 % (0-6); HEMOGLOBIN 13.9 g/dL (12.0-18.0); LYMPHOCYTES 26.4 % (24-44); MCH 30.4 (27-36); MCHC 34.9 g/dl (30-36); MCV 87.2 fl (81-99); NEUTROPHILS 63.8 % (39-80); PLATELET COUNT 209 K/uL (140-440); RBC 4.58 M/ul (4.3-5.7); RDW 13.2 (10.5-15.0)
[2024-09-03 06:32] LABS: ANION GAP 10.6 (7-21); BUN/CREATININE RATIO 8.1 (6.0-28.6); CALCIUM 8.6 mg/dL (8.5-10.1); CREATININE, SERUM 1.11 mg/dL (0.70-1.30); MAGNESIUM 1.9 mg/dL (1.8-2.4); PHOSPHORUS, INORGANIC 3.4 mg/dL (2.5-4.9); POTASSIUM 3.6 mmol/L (3.5-5.1)
--- NOTE | 2024-09-03 06:45 | NUR ---
ptt result of 63.7, charge nurse andlaci updated heparin flowsheet-see rn note from charge nurse. per titration flowsheet heparin infusion titrated down to 14 units/kg/hr, verified with second rn. ng tube dc'd at this time, ng tube intact and pt tolerated well.
--- NOTE | 2024-09-03 07:45 | NUR ---
RECEIVED REPORT FROM CARISSA RN, HEPARIN DRIP VERIFIED AT BEDSIDE, CURRENTLY AT 14UNITS/KG/HR. ORDERS ON THE CHART FOR A RECHECK AT 1245. PT STATES FEELING BETTER WITH NG TUBE OUT BUT C/O CHILLS THIS MORNING, WARM BLANKET PROVIDED. FRESH ICE CHIPS PROVIDED. PT DENIES ANY FURTHER NEEDS AT THIS TIME, CALL LIGHT WITHIN REACH, DOOR SHUT AND PT IS GOING TO TRY TO REST.
--- NOTE | 2024-09-03 10:07 | NUR ---
PATIENT IN BED AT THIS TIME. AUDIOVISUAL TECHNICIAN CHARTED VITALS AND I&O'S. CALL LIGHT WITH IN REACH AND NOTHING ELSE NEEDED AT THIS TIME.
--- NOTE | 2024-09-03 10:10 | NUR ---
Stopped to see pt. He is sleeping. Not awakened.
--- NOTE | 2024-09-03 13:17 | NUR ---
PTT IS THERAPEUTIC RANGE AT 55, HEPARIN INFUSION NO CHANGE. VERIFIED WITH YVETTER-CHARGE. INFUSION REMAINS RUNNING AT THIS TIME. WILL RECHECK THIS EVENING AT 1940.
--- NOTE | 2024-09-03 14:02 | NUR ---
PT NOT AVAILABLE FOR VISIT. PROVIDED PRAYER.
--- NOTE | 2024-09-03 14:05 | NUR ---
PATIENT IN BED AT THIS TIME. DIRECTOR SCHOOL OF NURSING CHARTED VITALS AND I&O'S. CALL LIGHT WITH IN REACH, NOTHING ELSE NEEDED AT THIS TIME.
--- NOTE | 2024-09-03 15:38 | NUR ---
SPECIAL EFFECTS DESIGNER SET PATIENT UP WITH SHOWER. PATIENT ABLE TO SHOWER INDEPENDENTLY. CALL LIGHT WITHIN REACH, NO FURTHER NEEDS AT THIS TIME.
--- NOTE | 2024-09-03 17:59 | NUR ---
PATIENT IN BED AT THIS TIME. LACTATION CONSULTANT CHARTED VITALS AND I&O'S. CALL LIGHT WITHIN REACH, NO FURTHER NEEDS AT THIS TIME.
--- NOTE | 2024-09-03 19:42 | NUR ---
REPORT RECEIEVED FROM DAY SHIFT RN. PATIENT RESTING IN BED. DENIES NEEDS AT THIS TIME. HEPARIN DRIP 14 UNITS/KG/HR. CALL LIGHT IN REACH.
--- NOTE | 2024-09-03 20:59 | NUR ---
PATIENT RESTING IN BED. VS AND I&Os OBTAINED AND RECORDED. BS OBTAINED AND RECORDED. NEW BAG IV FLUID INFUSING PER ORDER. HEPARIN DRIP INFUSING AT 14 UNITS/KG/HOUR. ASSESSMENT COMPLETE. PATIENT HAS NO FURTHER NEEDS. CALL LIGHT IN REACH.
[2024-09-03] MEDS ORDERED: MELATONIN 3 MG TAB PO SCH (21:00)
--- NOTE | 2024-09-03 21:45 | NUR ---
PATIENT WALKED 2 LAPS AROUND THE FLOOR INDEPENDENTLY.
--- NOTE | 2024-09-03 22:54 | NUR ---
PATIENT RESTING IN BED. SCHEDULED SLEEP MEDICATION ADMINISTERED. WARM BLANKET PROVIDED. NO FURTHER NEEDS. CALL LIGHT IN REACH.
[2024-09-04] VITALS (10 sets, daily range): BP systolic 106–127; BP diastolic 59–75
--- NOTE | 2024-09-04 01:20 | NUR ---
CALL LIGHT ANSWERED. PATIENT REQUESTING TEMP TO BE TURNED DOWN IN ROOM. INSTRUCTOR PAINTING [place] TO ROOM TO TURN DOWN TEMP. NO FURTHER NEEDS.
--- NOTE | 2024-09-04 02:14 | NUR ---
NEW BAG HEPARIN INFUSING AT 14 UNITS/KG/HR. DOUBLE VERIFIED BY GERRI MCDUFFIE. NO FURTHER NEEDS. CALL LIGHT IN REACH.
--- NOTE | 2024-09-04 03:34 | NUR ---
PATIENT RESTING IN BED ON BACK WITH EYES CLOSED. RESPIRATIONS EVEN AND UNLABORED. CALL LIGHT IN REACH.
[2024-09-04 05:25] LABS: BASOPHILS 0.6 % (0-2); EOSINOPHILS 1.2 % (0-6); HEMATOCRIT 39.5 % (35.0-50.0); HEMOGLOBIN 13.4 g/dL (12.0-18.0); LYMPHOCYTES 30.4 % (24-44); MCH 30.2 (27-36); MCHC 34.1 g/dl (30-36); MCV 88.7 fl (81-99); MONOCYTES 9.9 % (0-12); NEUTROPHILS 57.9 % (39-80); PLATELET COUNT 203 K/uL (140-440); RBC 4.45 M/ul (4.3-5.7); RDW 13.7 (10.5-15.0)
--- NOTE | 2024-09-04 05:27 | NUR ---
FILLING AND PACKING SUPERVISOR OBTAINED VITALS AND I&O. PT GIVEN ICE CHIPS UPON REQUEST. PT STATES NO FURTHER NEEDS AT THIS TIME. CALL LIGHT WITHIN REACH.
--- NOTE | 2024-09-04 05:40 | NUR ---
PATIENT 0518 PTT CAME BACK AT 63.4. PER MD CARDOZO PROTOCOL, HEPARIN DRIP DECREASED TO 13 UNITS/KG/HR. PTT LAB ORDER PLACED FOR 1140. DOUBLE VERIFIED BY WHIT MCDUFFIE.
[2024-09-04] MEDS ORDERED: ACETAMINOPHEN 500 MG TAB PO PRN (06:00)
--- NOTE | 2024-09-04 06:10 | NUR ---
MD CARDOZO ON FLOOR AT THIS TIME. PER ORDER, STOP HEPARIN INFUSION AROUND 1300 AND START ELIQUIS AT 2100. STATES NO NEED FOR PTT DRAW AT 1140.
--- NOTE | 2024-09-04 07:00 | NUR ---
REPORT RECEIVED FROM DRAPERY AND UPHOLSTERY ESTIMATOR RN SATINDER. PATIENT IS LYING IN BED WITH EYES OPEN AND RESPIRATIONS ARE EVEN AND UNLABORED. PATIET RESPONDS TO RN. HEPARIN RATE DOUBLE VERIFIED WITH RETA RAJAN. PATIENT STATED NO NEEDS AT THIS TIME. CALL LIGHT AND PERSONAL BELONGINGS ARE WITHIN REACH.
--- NOTE | 2024-09-04 07:50 | NUR ---
PATIENT IS LYING IN BED WITH EYES OPEN AND LOOKING ON HIS PHONE. PATIENT WITH NO COMPLAINTS OF PAIN OR NAUSEA. IV SITE IN THE RIGHT FOREARM FLUSHED WITH 10 ML NORMAL SALINE. IV DRESSING IS CLEAN, DRY, AND INTACT. IV ROCEPHIN IS INFUSING AT THIS TIME. PATIENT STATED NO FURTHER NEEDS AT THIS TIME. CALL LIGHT AND PERSONAL BELONGINGS ARE WITHIN REACH.
--- NOTE | 2024-09-04 08:35 | NUR ---
PATIENT IS LYING IN BED WITH EYES OPEN AND RESPIRATIONS ARE EVEN AND UNLABORED. FULL ASSESSMENT COMPLETE AND DOCUMENTED IN THE CHART. PATIENT IS ALERT AND ORIENTED AND INDEPENDENT IN THE ROOM. BOTH IV SITES BOTH FLUSHED WITH 10 ML NORMAL SALINE. IV DRESSINGS ARE CLEAN DRY AND INTACT. LEFT LOWER FOREARM IV WITH HEPARIN INFUSING AT 13 UNITS. UPPER LEFT FOREARM IV WITH FLAGYL INFUSING AT THIS TIME. PATIENT WITH NO COMPLAINTS OF PAIN OR NAUSEA. PATIENT IS ON A FULL LIQUID DIET AND BOWEL TONES ARE ACTIVE IN ALL FOUR QUADRANTS. CARDIAC WITH NORMAL S11 AND S2 ON AUSCULTATION. RADIAL AND PEDAL PULSES ARE STRONG BILATERALLY. CAPILLARY REFILL IN THE UPPER AND LOWER EXTREMITIES IS LESS THAN 3 SECONDS BILATERALLY. NO COMPLAINTS OF NUMBNESS OR TINGLING. PATIENT IS ON ROOM AIR AND LUNG SOUNDS ARE CLEAR BILATERALLY. ABDOMEN WITH MIDLINE INCISION WITH MARIA ISABEL AND OPEN TO AIR. DRY DRAINAGE NOTED. LAST BM WAS 09/03/24. PATIENT STATED NO FURTHER NEEDS AT THIS TIME. CALL LIGHT AND PERSONAL BELONGINGS ARE WITHIN REACH.
[2024-09-04] MEDS ORDERED: APIXABAN 5 MG TAB PO SCH (09:00)
[2024-09-04] MEDS ORDERED: PANTOPRAZOLE SODIUM 40 MG TABEC PO SCH (09:00)
--- NOTE | 2024-09-04 09:22 | NUR ---
DR REDMOND CALLED REGARDING HEPARIN ORDER CLARIFICATION. DR REDMOND STATED TO ADHERE TO DR CARDOZO'S HEPARIN ORDER.
--- NOTE | 2024-09-04 09:52 | NUR ---
PATIENT IS AMBULATING IN THE HALLWAY INDEPENDENTLY AT THIS TIME.
--- NOTE | 2024-09-04 10:10 | NUR ---
Pt walking in the estrada. He denies c/o. Very happy to have his ng out and to have food. He denies needs.
--- NOTE | 2024-09-04 10:36 | NUR ---
PATIENT IS LYING IN BED AND SPEAKING ON THE PHONE. PATIENT STATED NO FURTHER NEEDS AT THIS TIME. CALL LIGHT AND PERSONAL BELONGINGS ARE WITHIN REACH.
--- NOTE | 2024-09-04 11:22 | NUR ---
PATIENT IS LYING IN BED WITH EYES OPEN AND LOOKING ON THEIR PHONE. PATIENT STATED NO FURTHER NEEDS AT THIS TIME. CALL LIGHT AND PERSONAL BELONGINGS ARE WITHIN REACH.
--- NOTE | 2024-09-04 11:31 | NUR ---
WHEN I WENT IN TO DO PATIENT'S MORNING VITALS. PATIENT ASKED FOR A CUP OF ICE.
--- NOTE | 2024-09-04 12:18 | NUR ---
PATIENT LUNCH TRAY MOVED IN FRONT OF THE PATIENT AT THIS TIME. PATIENT TURNED THE LIGHTS ON. PATIENT STATED NO FURTHER NEEDS AT THIS TIME. CALL LIGHT AND PERSONAL BELONGINGS ARE WITHIN REACH.
--- NOTE | 2024-09-04 13:19 | NUR ---
PATIENT VITAL SIGNS AND INTAKE AND OUTPUT TAKEN AND DOCUMENTED IN THE CHART. IV SITES FLUSHED WITH 10 ML NORMAL SALINE EACH. IV DRESSINGS ARE CLEAN, DRY, AND INTACT. IV IN THE LEFT LOWER FOREARM IS SALINE LOCKED. HEPARIN DRIP IS DISCONTINUED. IV IN THE LEFT UPPER FOREARM WITH D5LR INFUSING AT 50 ML/HR. PATIENT WITH NO COMPLAINTS OF PAIN AT THIS TIME. BOWEL TONES ARE ACTIVE IN ALL FOUR QUADRANTS. MIDLINE INCISION IS OPEN TO AIR WITH DRY DRAINAGE NOTED. PATIENT STATED NO FURTHER NEEDS AT THIS TIME. CALL LIGHT AND PERSONAL BELONGINGS ARE WITHIN REACH.
--- NOTE | 2024-09-04 13:33 | NUR ---
VISITED DURING SPIRITUAL CARE ROUNDS. PT EXPRESSED GRATITUDE, RESILIENCE, STATES NO IMMEDIATE NEEDS. ELECTRICAL INSTALLATION INSPECTOR PROVIDED SUPPORTIVE PRESENCE, HOSPITALITY, PRAYER. PT EXPRESSED GRATITUDE FOR VISIT.
--- NOTE | 2024-09-04 13:42 | NUR ---
WHEN I WENT IN TO PATIENT'S ROOM TO DO HIS VITALS NURSE WAS ALREADY IN THERE DOING HIS VITALS AND I&O. I ASKED HIM IS THERE ANYTHING HE NEEDED AND HE SAID A NEW CUP OF ICE CHIPS. BROUGHT HIM HIS ICE CHIPS.
--- NOTE | 2024-09-04 13:46 | NUR ---
OPENED HIS FIRST BLIND HALF WAY BECAUSE THAT IS WHAT THE PATIENT WANTED.
--- NOTE | 2024-09-04 14:30 | NUR ---
PATIENT IS AMBULATING IN THE HALLWAY INDEPENDENTLY. PATIENT IS TOLERATING WELL.
--- NOTE | 2024-09-04 15:39 | NUR ---
PATIENT IS LYING IN THE CHAIR WITH BILATERAL LOWER EXTREMITIES ELEVATED. PATIENT IS ON HIS PHONE WITH THE TV ON. ICE CHIPS PROVIDED. PATIENT STATED NO FURTHER NEEDS AT THIS TIME. CALL LIGHT AND PERSONAL BELONGINGS ARE WITHIN REACH.
--- NOTE | 2024-09-04 16:23 | NUR ---
PATIENT IS LYING IN BED WITH HOB ELEVATED AND THE TV ON. PATIENT IS SITTING IN THE CHAIR WITH BILATERAL LOWER EXTREMITIES. D5LR IS INFUSING AT 50 ML/HR. PATIENT AND FAMILY STATED NO FURTHER NEEDS AT THIS TIME. CALL LIGHT AND PERSONAL BELONGINGS ARE WITHIN REACH.
--- NOTE | 2024-09-04 17:05 | NUR ---
PATIENT IS SITTING IN THE CHAIR WITH BILATERAL LOWER EXTREMITIES ELEVATED. PATIENT PROVIDED ICE CHIPS AT THIS TIME. PATIENT STATED NO FURTHER NEEDS AT THIS TIME. CALL LIGHT AND PERSONAL BELONGINGS ARE WITHIN REACH.
--- NOTE | 2024-09-04 18:23 | NUR ---
PATIENT IS SPEAKING WITH VISITORS IN THE ROOM AT THIS TIME. CALL LIGHT AND PERSONAL BELONGINGS ARE WITHIN REACH.
--- NOTE | 2024-09-04 19:30 | NUR ---
REPORT RECEIVED FROM DAY SHIFT RN. PATIENT RESTING IN BED. DENIES NEEDS AT THIS TIME. CALL LIGHT IN REACH.
--- NOTE | 2024-09-04 20:43 | NUR ---
PATIENT RESTING IN BED. VS AND I&Os OBTAINED AND RECORDED. SCHEDULED MEDICATION ADMINISTERED. ASSESSMENT COMPLETE. ABD INCISION C/D/I. BOWEL TONES ACTIVE. PATIENT DENIES NEEDS AT THIS TIME. CALL LIGHT IN REACH.
--- NOTE | 2024-09-04 23:13 | NUR ---
SCHEDULED SLEEPING MEDICATION ADMINISTERED AND PRN PAIN MEDICATION ADMINSITERED PER PATIENT REQUEST FOR 08/08 ABD PAIN. FRESH ICE CHIPS PROVIDED. PATIENT DENIES FURTHER NEEDS. CALL LIGHT IN REACH.
--- NOTE | 2024-09-05 01:51 | NUR ---
PATIENT RESTING IN BED WITH EYES CLOSED. RESPIRATIONS EVEN AND UNLABORED. CALL LIGHT IN REACH.
[2024-09-05 03:21] VITALS: BP 116/62
--- NOTE | 2024-09-05 03:33 | NUR ---
ROUNDING ON PATIENT. PATIENT RESTING IN BED. VS AND I&Os OBTAINED AND RECORDED. PATIENT DENIES FURTHER NEEDS. CALL LIGHT IN REACH.
[2024-09-05 05:40] LABS: BASOPHILS 0.5 % (0-2); EOSINOPHILS 1.5 % (0-6); HEMATOCRIT 38.6 % (35.0-50.0); HEMOGLOBIN 13.5 g/dL (12.0-18.0); LYMPHOCYTES 33.8 % (24-44); MCH 30.4 (27-36); MCV 86.7 fl (81-99); MONOCYTES 9.7 % (0-12); NEUTROPHILS 54.5 % (39-80); PLATELET COUNT 204 K/uL (140-440); RBC 4.45 M/ul (4.3-5.7); RDW 13.4 (10.5-15.0)
[2024-09-05 05:58] LABS: ANION GAP 10.9 (7-21); BUN/CREATININE RATIO 8.18 (6.0-28.6); CALCIUM 8.9 mg/dL (8.5-10.1); CREATININE, SERUM 1.1 mg/dL (0.70-1.30); MAGNESIUM 1.9 mg/dL (1.8-2.4); PHOSPHORUS, INORGANIC 3.5 mg/dL (2.5-4.9); POTASSIUM 3.9 mmol/L (3.5-5.1)
--- NOTE | 2024-09-05 07:00 | NUR ---
REPORT RECEIVED FROM LIQUEFACTION AND REGASIFICATION HELPER RN SATINDER. PATIENT IS LYING IN BED WITH EYES OPEN AND RESPIRATIONS ARE EVEN AND UNLABORED. PATIENT GIVEN FRESH ICE CHIPS. PATIENT STATED NO FURTHER NEEDS AT THIS TIME. CALL LIGHT AND PERSONAL BELONGINGS ARE WITHIN REACH.
--- NOTE | 2024-09-05 07:20 | NUR ---
PATIENT IS LYING IN BED WITH THE HOB ELEVATED. PATIENT PROVIDED SMALL AMOUNT OF ICE CHIPS. FULL ASSESSMENT COMPLETE AND DOCUMENTED IN THE CHART. PATIENT IS ALERT AND ORIENTED TIMES FOUR. PATIENT IS ON ROOM AIR AND LUNG SOUNDS ARE CLEAR BILATERALLY IN ALL LUNG CHIU. CARDIAC WITH NORMAL S1 AND S2 ON AUSCULTATION. RADIAL AND PEDAL PULSES ARE STRONG BILATERALLY. CAPILARY REFILL IN THE UPPER AND LOWER EXTREMITIES IS LESS THAN 3 SECONDS. SENSATION INTACT WITH NO COMPLAINTS OF NUMBNESS OR TINGLING. PATIENT IS ON A FULL LIQUID DIET. BOWEL TONES ARE ACTIVE IN ALL FOUR QUADRANTS. PATIENT WITH NO COMPLAINTS OF PAIN OR NAUSEA. BOTH IV SITES FLUSHED WITH 10 ML NORMAL SALINE. IV DRESSINGS ARE CLEAN DRY AND INTACT. IV IN THE THE LEFT LOWER FOREARM IS SALINE LOCKED. IV IN THE LEFT UPPER ARM WITH D5LR INFUSING AT 50 ML/HR. PATIENT IS INDEPENDENT IN THE ROOM. PATIENT WITH MIDLINE INCISION OPEN TO AIR WITH DRY DRAINAGE NOTED. PATIENT STATED NO FURTHER NEEDS AT THIS TIME. CALL LIGHT AND PERSONAL BELONGINGS ARE WITHIN REACH.
[2024-09-05] MEDS ORDERED: ELIQUIS5 MG PO (09:17)
--- NOTE | 2024-09-05 09:30 | NUR ---
PATIENT IS DISCHARGING TODAY. SAYS HIS WILL BE HERE THIS AFTERNOON TO GET HIM. NO FUTHER CM NEEDS.
--- NOTE | 2024-09-05 09:32 | NUR ---
PATIENT IS IN THE BATHROOM AT THIS TIME. PATIENT STATED NO NEEDS AT THIS TIME. CALL LIGHT AND PERSONAL BELONGINGS ARE WITHIN REACH.
--- NOTE | 2024-09-05 10:18 | NUR ---
PATIENT IS LYING IN BED AND ON THEIR PHONE. TV IS ON. IV PUMP CLEARED OF INTAKE FLUID AT THIS TIME. PATIENT STATED NO FURTHER NEEDS. CALL LIGHT AND PERSONAL BELONGINGS ARE WITHIN REACH.
[2024-09-05 10:45] VITALS: BP 114/67
[2024-09-05 10:48] VITALS: BP 114/67
--- NOTE | 2024-09-05 11:14 | NUR ---
THIS RN ASSISTED PRIMARY RN WITH STAPLE REMOVAL. 15 MARIA ISABEL REMOVED, INCISION LOOK FREE OF INFECTION/REDNESS/DRAINAGE. WELL APPROXIMATED. PT TOLERATED PROCEDURE WELL.
--- NOTE | 2024-09-05 11:16 | NUR ---
15 MARIA ISABEL TAKEN OUT WITH RETA SPEAR. PATIENT TOLERATED WELL. TWO IV SITES REMOVED AT THIS TIME. CATHETER TIPS INTACT. PATIENT EDUCATED ON HOW TO CARE FOR IV SITES. PATIENT TOLERATED WELL. DISCAHRGE INSTRUCTIONS AND DISCHARGE EDUCATION REVIEWED WITH THE PATIENT. PATIENT WITH NO FURTHER QUESTIONS OR CONCERS. PATIENT SIGNED THE DISCHARGE FORM. PATIENT STATED NO FURTHER NEEDS AT THIS TIME. CALL LIGHT AND PERSONAL BELONGINGS ARE WITHIN REACH.
--- NOTE | 2024-09-05 14:02 | DS ---
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 PROCEDURE: Laparotomy with small bowel resection and primary nylv-iu-vczv anastomosis. HISTORY OF PRESENT ILLNESS: Farhad is a 43-year-old gentleman, who describes an open appendectomy for ruptured appendicitis, when he was 4 years old. He remembers the drain was in place for two weeks. They all thought he was going to . He said he has had troubles with his abdomen in his whole life. His spent on the Internet reading extensively and thought maybe he had Crohn disease or celiac disease. He very clearly describes it being worse if he eats more solid food. He finally ended up in the ER twice over five days. There was concern about constipation, vomiting, dehydration, and abdominal pain. Of course, when he got IV fluids and some Zofran, he felt better and was discharged home. He had an ultrasound of his right upper quadrant, which was negative. We he came back the second time, the CT scan showed the small bowel obstruction, but he also had thrombus in his SMV near the confluence of the splenic vein. I was asked to admit him as a general surgeon on-call. HOSPITAL COURSE: Farhad was admitted as above. He was treated conservatively initially and placed on a heparin drip. Farhad and his had inquired about a small bowel follow-through. He understandably flung to small bowel follow-through. We took him to the operating room after he has fluid resuscitation and correction of his electrolytes over a couple of days. He went to surgery on 08/29/2024 for the laparotomy, and he had an interloop adhesion in his terminal ileum with necrotic bowel in between. That was resected and had a afbi-qu-hzwh anastomosis done in two layers hand-sewn. The mesenteric rent was closed with Vicryl suture. He had a Meckel diverticulum just distal to that by about 10 cm. Of course, the pathology came back with necrotic bowel. It has taken him a while to recover from that necrotic bowel. He now has his platelet count back up over 200,000. In the last three days, his skin color on his eyes have improved markedly. He has passed an enormous amount of fluid along with gas and multiple bowel movements. He has been ambulating better. His abdomen is now soft, flat, nontender. All the dullness to percussion is gone. He is tolerating full liquid diet. He has been back on his chronic medications. His incision is healing well without any local signs or symptoms of infection. He was hoping he could go home today with his family. Electronically Signed By: JAN CARDOZO MD 09/05/24 1402 PATIENT NAME: FARHAD KWONG DISCHARGE SUMMARY DATE OF : 76 REPORT #: [id number] PHYSICIAN: JAN CARDOZO MD PCP: NOEMI RIVERO MD REPORT IS CONFIDENTIAL AND NOT TO BE RELEASED WITHOUT AUTHORIZATION [address] [address] Signed DISCHARGE PLANS AND MEDICATIONS: Farhad is going to go to home without any new prescriptions. He told me hydrocodone makes him sick, and he does not like to take it, normally ibuprofen is fine. He has already seven days out from surgery and should not really need any narcotics. He can always use some Tylenol as well. He will resume his chronic medications, which include his allopurinol plus his albuterol, his Dulera. He is welcome to perform his activities of daily living including walking up and down stairs and showering and bathing as usual. He should not do any heavy pushing, pulling, and lifting over 20 pounds for about two months. 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 We are going to remove every other staple. He will shower and bathe right over the incision as he has done here in the hospital. He will be on a soft diet now for a couple of weeks, and then he will advance that as tolerated after that. We will see him back in the office in about 5-7 days to take out the rest of his carlos. He has expressed understanding, agrees with the above plan. Jan Cardozo MD ALB/MODL /[id number] cc: Noemi Rivero MD Patient Chart Jan Cardozo MD Copies: NOEMI RIVERO MD, ANDREW L MD ~ Electronically Signed By: JAN CARDOZO MD 09/05/24 1402 PATIENT NAME: FARHAD KWONG DISCHARGE SUMMARY DATE OF : 76 REPORT #: [id number] PHYSICIAN: JAN CARDOZO MD PCP: NOEMI RIVERO MD REPORT IS CONFIDENTIAL AND NOT TO BE RELEASED WITHOUT AUTHORIZATION
== END 2024-09-05 11:50 | disposition home or self-care (01) | DRG 329 ==
LOC: ED 17:40 → MS 20:41
PROVIDERS: Emergency Medicine; Internal Medicine; Student in an Organized Health Care Education/Training Program; ADMIT Colon & Rectal Surgery; ATTEND Colon & Rectal Surgery
PROC: 0DH67UZ Insertion of Feeding Device into Stomach, Via Natural or Artificial Opening (ICD-10-PCS; principal; 2024-08-30)
PROC: 0DB80ZZ Excision of Small Intestine, Open Approach (ICD-10-PCS; principal; 2024-08-30)
DX: K56.50 Intestinal adhesions [bands], unspecified as to partial versus complete obstruction (principal); K55.029 Acute infarction of small intestine, extent unspecified; J45.909 Unspecified asthma, uncomplicated; F12.10 Cannabis abuse, uncomplicated; E86.0 Dehydration; M10.9 Gout, unspecified; E83.39 Other disorders of phosphorus metabolism; E87.6 Hypokalemia; G47.33 Obstructive sleep apnea (adult) (pediatric); E83.42 Hypomagnesemia; Z98.890 Other specified postprocedural states; Z90.49 Acquired absence of other specified parts of digestive tract; Z79.899 Other long term (current) drug therapy; Z79.51 Long term (current) use of inhaled steroids
CPT/HCPCS: 00840; 36415; 71045; 71260; 74177; 74250; 80048; 80053; 81001; 83690; 83735; 84100; 84134; 85025; 85610; 85730; 94762; 96361; 96375; 99285-25; A9270; J0330; J0696; J0780; J1100; J1171; J1644; J1650; J1790; J1885; J2250; J2371; J2405; J2470; J2704; J2765; J3010; J3475; J3480; J3490; J7030; J7060; J7121; Q9967

== ENCOUNTER 2025-02-05 05:55 | Day surgery (SDC) | payer OTHER ==
[~2025-02-05] VITALS: Ht 188 cm; Wt 115.0 kg
[~2025-02-05 05:55] MED LIST changes: +ALLOPURINOL100 MG PO; +COLCRYS0.6 MG PO; +DULERA 100 MCG/13 GM INH; +ELIQUIS5 MG PO; +INDOMETHACIN25 MG PO; +LACTATED RINGER'S 1,000 ML IV SCH; +PRILOSEC OTC20 MG PO; +VENTOLIN HFA18 GM INH
[2025-02-05 06:10] VITALS: BP 125/72
[2025-02-05] MEDS ORDERED: ALLEGRA ALLERGY60 MG PO (06:14)
[2025-02-05] MEDS ORDERED: BENADRYL25 MG PO (06:17)
[2025-02-05] MEDS ORDERED: IBLOOD GLUCOSE TEST STRIP 1 EA TEST VI PRN (07:00)
[2025-02-05] MEDS ORDERED: LIDOCAINE HCL 1% 5 ML SDV INJ ONE (07:00)
--- NOTE | 2025-02-05 07:37 | NUR ---
VISITED DURING SPIRITUAL CARE ROUNDS. PT IN OVERALL GOOD SPIRITS, NO IMMEDIATE NEEDS. HEAD UP OPERATOR HELPER PROVIDED SUPPORTIVE PRESENCE, HOSPITALITY, PRAYER, FACILITATED INTERACTION WITH THERAPY ANIMAL.
[2025-02-05] MEDS ORDERED: GLYCOPYRROLATE 1 MG/5 ML MDV ONE (07:38)
[2025-02-05] MEDS ORDERED: KETAMINE in NS 50 MG/5 ML SYR ONE (07:38)
[2025-02-05] MEDS ORDERED: CEFAZOLIN SOD 1,000 MG/10 ML VIAL ONE (07:51)
[2025-02-05] MEDS ORDERED: fentaNYL citrate 100 MCG/2 ML VIAL ONE (07:58)
--- NOTE | 2025-02-05 08:28 | NUR ---
02/05/25 0828 Cynthia Laughlin 0815- PT PRESENTS TO PACU, SEMI GUIDO POSITION. LMA IN PLACE, O2 AT 6L PER MASK, BREATHING EVEN AND NON LABORED. ABD SOFT, NON DISTENDED. GAUZE TO LEFT SIDE OF HEAD, CDI. LR INFUSING TO RFA IV. PT NON REACTIVE TO ALL STIMULUS, ALL MONITORS IN PLACE. 0825- PT REMAINS NON REACTIVE TO STIMULUS, LMA IN PLACE.
[2025-02-05 08:54] VITALS: BP 120/71
--- NOTE | 2025-02-05 08:58 | NUR ---
0850- PT ARRIVES FROM PACU. BEDSIDE REPORT RECIEVED FORM RETA MENJIVAR. PT IS DROWSY BUT ANSWERS QUESTIONS APPROPRIATELY. PT REPORTS 3/10 PAIN THAT IS TOLERABLE AND NO NAUSEA. SURGICAL SITE IS CDI. PT RESTING WITH EYES CLOSED BUT EASILY WAKES TO VERBAL STIMULI. PT HAS ICE WATER AT BEDSIDE. PT DENIES WANTING FOOD AT THIS TIME. VITAL SIGNS OBTAINED. PT REPORTS WANTING TO REST. CALL LIGHT IN REACH. BED IS LOCKED IN THE LOWEST POSITON. 0900- DR. MONDRAGON IN ROOM DISCUSSING PROCEDURE WITH PT. THIS RN INSTRUCTED TO REINFORCE DRESSING. DRESSING REINFORCED BY MINERVA SIMMS.
--- NOTE | 2025-02-05 09:50 | NUR ---
INTO PTS ROOM FOR ROUTINE REASSESSMENT. VS TAKEN, BP NOTED TO BE SOFT. PT ENCOURAGED TO DRINK FLUIDS AND IV FLUIDS HANGING AND INFUSING PER ORDERS. IV SITE ASSESSED. PT DENIES NAUSEA WHEN ASKED. PT WITH REPORTS OF PAIN IN HEAD SURGICAL INCISION SITE. PT RATES PAIN AT 2/10 AND WOULD LIKE TO TRY PAIN MEDS SOON IF ABLE. PT ADVISED BP IS LOWER AND PAIN MEDS CAN FURHTER DECREASE BP. PT EXPRESSES UNDERSTANDING AND IS STARTING TO DRINK FLUIDS NOW. PT PROVIDED WITH PUDDING AND IS ALSO EATING NOW. SURGICAL SITE VISUALIZED AND DRSG REMAINS CDI. BED IN LOW POSITION, WHEELS LOCKED, BILAT RAILS IN PLACE. CALL LIGHT WITHIN PT REACH.
[2025-02-05 09:56] VITALS: BP 99/60
[2025-02-05 10:29] VITALS: BP 104/70
--- NOTE | 2025-02-05 10:32 | NUR ---
1030- PT IS RESTING WITH AT BEDSIDE. PT REPORTS 3/10 PAIN AND NO NAUSEA. IV IS INFUSING. VITAL SIGNS OBTAINED. CALL LIGHT IN REACH. PT REPORTS NEEDING TO USE THE RESTROOM.
--- NOTE | 2025-02-05 12:41 | NUR ---
1040- PT UP TO USE THE RESTROOM. PT IS ABLE TO SIT ON THE SIDE OF THE BED AND DENIES NAUSEA. PT HAS AN EVEN AND STEADY GAIT TO THE RESTROOM. PT IS ABLE TO VOID 525ML OF CLEAR YELLOW URINE. PT IS ABLE TO AMBULATE BACK TO HIS ROOM SAFELY. 1120- PT IS ABLE TO GET DRESSED INDEPENDENTLY. PT REPORTS THAT HIS PAIN HAS NOT GOTTEN WORSE THAN A 3/10 THAT IS TOLRABLE. PT DENIES NAUEA. IV REMOVED. DISCHARGE CRITERIA MET AND DICHARGE INTRUCTIONS GONE OVER. ALL QUESTIONS AND CONCERNS ANSWERED. PT HAS PRESCRIPTION. PT HAS ALL BELONGINGS. PT IS ABLE TO AMBULATE TO WHEELCHAIR SAFELY. PT DC'S FROM DAY SURGERY AT THIS TIME. PT IS ABLE TO GET INTO FAMILY VEHICLE WITH NO ISSUES.
--- NOTE | 2025-02-11 10:59 | PATH ---
[facility] [place] [facility] [address] [facility] [place], [place] [address] Signed SPECIMEN(S): A LEFT SCALP SPECIMEN SOURCE: A. 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 - Negative for atypia or malignancy. COMMENT: Sections demonstrate a cyst lined by bilayer of cells. The cyst lumen contains amorphous material and cholesterol clefts with areas showing histiocytic foreign body reaction noted. No nuclear atypia, mitosis or necrosis are seen. No malignancy is identified. The lesion abuts the inked periphery, raising the possibility of recurrence. Case is reviewed by Dr. Billy, a board certified dermatopathologist. NA MICROSCOPIC EXAMINATION: Histologic sections of all submitted blocks are examined by light microscopy. These findings, together with the gross examination, support the pathologic diagnosis. GROSS DESCRIPTION: The specimen, labeled and designated "Khris, left scalp mass," is received in formalin and consists of two slightly fragmented portions of ross to red-brown soft tissue (0.8 x 0.7 x 0.6 cm, and 1.7 x 1.2 x 1.0 cm). The tissues are differentially inked blue (bisected) and black (serially sectioned) respectively, and sectioning reveals brown-ross soft/gelatinous cut surfaces. The specimen is submitted entirely in cassette (A1-A2). VB (under the direct supervision of a pathologist) The Gross Description was prepared using a voice recognition system. The report was reviewed for accuracy; however, sound-alike word errors, addition and/or deletions may occur. If there is any question about this report, please contact Client Services. PATIENT NAME: MARIE KWONG PATHOLOGY DATE OF : 76 REPORT #: [id number] PHYSICIAN: IGLESIA FIERRO PCP: NOEMI MANCINI MD REPORT IS CONFIDENTIAL AND NOT TO BE RELEASED WITHOUT AUTHORIZATION [facility] [place] [facility] [address] [place], [place] [address] Signed ADDITIONAL NOTES: Immunohistochemical and/or in situ hybridization studies if performed in this case included appropriate positive controls that reacted as expected. This test was developed and its performance characteristics determined by [facility]. It has not been cleared or approved by the U.S. Food and Drug Administration. The FDA has determined that such clearance or approval is not necessary. This test is used for clinical purposes. It should not be regarded as investigational or for research. [facility] is certified under the Clinical Laboratory Improvement Amendments of 1988 (CLIA) as qualified to perform high complexity clinical laboratory testing. PERFORMING LABORATORY: Technical component was performed by [facility], [address] [place] [address] (CLIA# [id number]). Professional interpretation was performed by [facility] - [facility], [address] [place] [address] (CLIA#: [id number]). Diagnostician: Angela Rust MD Pathologist Electronically Signed 02/11/2025 Copies: ~ PATIENT NAME: MARIE KWONG PATHOLOGY DATE OF : 76 REPORT #: [id number] PHYSICIAN: IGLESIA FIERRO PCP: NOEMI MANCINI MD REPORT IS CONFIDENTIAL AND NOT TO BE RELEASED WITHOUT AUTHORIZATION
--- NOTE | 2025-02-11 15:15 | OR ---
[facility] [address] [place], [place] [address] Signed DATE OF OPERATION: 02/05/2025 SURGEON: Angelic Mondragon DO PREOPERATIVE DIAGNOSIS: 3 cm deep scalp mass of the left cranium. POSTOPERATIVE DIAGNOSIS: 3 cm deep scalp mass of the left cranium, pending final pathology. PROCEDURE PERFORMED: Excision of 3 cm deep scalp mass. ANESTHESIA: LMA. EBL: Minimal. DRAINS: None. COMPLICATIONS: None. DESCRIPTION OF PROCEDURE: The patient was brought to the operating room, placed in the supine position. After induction of LMA anesthesia, the scalp and cranium were then sterilely shaved, prepped, and draped utilizing a linear incision over the scalp mass. Skin was incised with a 10 blade scalpel. Dissection continued through the layers of the subcutaneous tissue and down to anterior portion of the lesion. with Metzenbaum scissors and bleeding points were controlled with electrocautery. The lesion was then dissected down to the anterior portion and attached to the temporalis muscle. It was further excised and cautery was used to ligate and separate the lesion from the temporalis muscle. The lesion was then passed off the field for pathologic review. The defects were then thoroughly irrigated and dried. Bleeding points were controlled with electrocautery. The deep tissue was closed with interrupted 3-0 Vicryl. Skin was closed with carlos. Sterile dressing was applied. The patient tolerated the procedure well and went to recovery room in satisfactory condition. Electronically Signed By: ANGELIC MONDRAGON DO 02/11/25 1515 PATIENT NAME: MARIE KWONG OPERATIVE REPORT DATE OF : 76 REPORT #: [id number] PHYSICIAN: ANGELIC MONDRAGON DO PCP: NOEMI MANCINI MD REPORT IS CONFIDENTIAL AND NOT TO BE RELEASED WITHOUT AUTHORIZATION [address] [place], [place] [address] Signed Angelic Mondragon DO RS/MODL /[id number] Copies: ~ Electronically Signed By: ANGELIC MONDRAGON DO 02/11/25 1515 PATIENT NAME: MARIE KWONG OPERATIVE REPORT DATE OF : 76 REPORT #: [id number] PHYSICIAN: ANGELIC MONDRAGON DO PCP: NOEMI MANCINI MD REPORT IS CONFIDENTIAL AND NOT TO BE RELEASED WITHOUT AUTHORIZATION
== END 2025-02-05 11:20 | disposition home or self-care (01) ==
LOC: OPS 05:55 → DS 05:55 → OPS 07:30 → DS 13:45 → OPS 14:30
PROVIDERS: ATTEND Surgery
PROC: 0JB00ZZ Excision of Scalp Subcutaneous Tissue and Fascia, Open Approach (ICD-10-PCS; principal; 2025-02-05 07:30)
DX: M79.89 Other specified soft tissue disorders (principal); J45.909 Unspecified asthma, uncomplicated; Z79.899 Other long term (current) drug therapy; Z88.8 Allergy status to other drugs, medicaments and biological substances
CPT/HCPCS: 00300; J0690; J2704; J3010; J3490